=== PATIENT | male | born 1950 | race Caucasian/White ===

== ENCOUNTER 2018-10-10 09:05 | Outpatient (REF) | payer MEDICARE, MEDICAID, SELFPAY ==
[2018-10-10 14:37] LABS: Bilirubin Negative (Negative); Blood Negative (Negative); Clarity Clear; Glucose Negative (Negative); Ketones Negative (Negative); Leukocyte Esterase Negative (Negative); Nitrite Negative (Negative); Urobilinogen 0.2 EU/dL (Up TO 0.2)
== END 2018-10-10 09:25 ==
LOC: NCHCN 09:05
PROVIDERS: PCP Nurse Practitioner Family; Visit Provider Nurse Practitioner Family
DX: R35.0 Frequency of micturition (principal); N52.9 Male erectile dysfunction, unspecified; Z12.5 Encounter for screening for malignant neoplasm of prostate
CPT/HCPCS: 84153; 84403; 81003

== ENCOUNTER 2018-10-11 07:42 | Outpatient (REF) | payer MEDICARE, SELFPAY ==
[2018-10-12 11:14] LABS: PSA, Screening 1.1 ng/ml (0-4.5)
[2018-10-14 11:26] LABS: Testosterone, Free 6.18 ng/dL (3.47-13.0); Testosterone, Total 206 ng/dL (240-950)
== END 2018-10-11 08:02 ==
LOC: NCHCN 07:42
PROVIDERS: PCP Nurse Practitioner Family; Visit Provider Nurse Practitioner Family
DX: N52.9 Male erectile dysfunction, unspecified (principal); Z12.5 Encounter for screening for malignant neoplasm of prostate
CPT/HCPCS: 84153; 84402; 84403

== ENCOUNTER 2019-04-16 08:30 | Outpatient (REF) | payer MEDICARE, SELFPAY ==
[2019-04-16 19:44] LABS: HGB 15.5 g/dL (13.5-17.5); Mean Corp. HGB Concentration 34.4 g/dL (32.0-36.0); Mean Corpuscular Volume 84.3 fL (80-95); Mean Platelet Volume 10.9 fL (8.0-11.0); Platelet Count 216 x1000/uL (130-400); RBC 5.34 m/cumm (4.50-6.00); RBC Distribution Width 12.9 % (11.8-14.1)
[2019-04-16 20:02] LABS: ALT 49 U/L (12-78); AST 21 U/L (15-37); Albumin 3.9 g/dL (3.4-5.0); Alkaline Phosphatase 80 U/L (46-116); Anion Gap 9.7 mmol/L (3-11); BUN 16 mg/dL (7-18); Bilirubin, Total 0.5 mg/dL (0.2-1.0); CO2 27.3 mmol/L (21.0-32.0); CREATININE 0.99 mg/dL (0.70-1.30); Calcium 8.9 mg/dL (8.5-10.1); Chloride 102 mmol/L (98-107); Glucose 126 mg/dL (70-100); Potassium 4.2 mmol/L (3.5-5.1); Sodium 139 mmol/L (136-145); Total Protein 6.8 g/dL (6.4-8.2)
== END 2019-04-16 08:50 ==
LOC: NCHCN 08:30
PROVIDERS: PCP Nurse Practitioner Family; Visit Provider Nurse Practitioner Family
DX: F10.10 Alcohol abuse, uncomplicated (principal); I10 Essential (primary) hypertension; E11.65 Type 2 diabetes mellitus with hyperglycemia
CPT/HCPCS: 80053; 85027

== ENCOUNTER → 2019-07-05 13:13 | Outpatient (BNVA) | payer MEDICARE, SELFPAY | PROVIDERS: PCP Nurse Practitioner Family; Referring Provider Nurse Practitioner Family; Visit Provider Physical Therapy Assistant | DX: Z86.010 Personal history of colon polyps (principal); Z12.11 Encounter for screening for malignant neoplasm of colon; Z80.0 Family history of malignant neoplasm of digestive organs; E11.9 Type 2 diabetes mellitus without complications; Z79.4 Long term (current) use of insulin ==

== ENCOUNTER 2019-07-13 05:54 | Day surgery (SDC) | payer MEDICARE, SELFPAY ==
[2019-07-13 06:06] VITALS: BP 138/72; PULSE 60; RESP 18; TEMP 36.6; O2SAT 95
[2019-07-13] MEDS: Lactated Ringers 1,000 ML 80 ML IV (06:31)
--- NOTE | 2019-07-13 07:12 | W.PM.DSUDISC ---
Discharge Plan Disposition Patient Disposition: HOME Condition: Good Discharge Details Reason For Visit: Colonoscopy Attending Provider: Soraida Posadas Primary Care Provider: Jag Escalante Home Meds and New Rx's Prescriptions: Continued metformin 500 mg tablet 1,000 mg PO BID RF: 0 Basaglar KwikPen U-100 Insulin 100 unit/mL (3 mL) insulin pen 80 unit SC DAILY RF: 0 ammonium lactate 12 % lotion 1 applic TP BID RF: 0 sildenafil [Viagra] 50 mg tablet 50 mg PO DAILY PRNRF: 0 lisinopril 10 MG tablet 10 mg PO DAILY RF: 0 simvastatin 80 MG tablet 40 mg PO DAILY RF: 0 albuterol sulfate [Proventil HFA] 1 PUFF HFA aerosol inhaler 2 puff Inhalation QID PRNRF: 0 aspirin [Aspir-81] 81 MG tablet,delayed release (DR/EC) 81 mg PO DAILY RF: 0 Discharge Instructions Additional Instructions: Findings: One small polyp was removed. My office will contact you with biopsy results. Follow up: Plan for colonoscopy in 5 years Please call if you develop: fevers >101.5 Nausea or Vomiting Abdominal pain that is not transient DAY SURGERY UNIT POST COLONOSCOPY INSTRUCTIONS 1. Because there will be medication in your system for the next 24 hours, you may feel a little sleepy. Your coordination will be affected. Therefore: a. Do not drive or operate dangerous equipment for 24 hours. b. Do not drink alcohol beverages for 24 hours (not even beer). c. Plan to go home and rest for the day. 2. Generally there are no restrictions on your activity after a day or so has gone by, but you may feel a bit fatigued for a few days. 3 After you arrive home you may have a light meal and return to a normal diet as you can tolerate it without feeling sick to your stomach. 4. After surgery, you may feel pain or discomfort. This should be only transient, but if it persists please contact your doctor. 5. If there are any questions regarding the findings of your procedure, please feel free to contact your doctor. 6. If you are unable to contact your doctor with a problem, contact the hospital at [phone]. 7. Continue all your regular medications unless directed otherwise. I understand the above instructions and have no questions. Signature of Patient or Responsible Adult Escort Date/Time Name of Responsible Adult Escort Signature of Nurse Date/Time Activity:: Activity as Tolerated Diet:: As Tolerated Discharge Orders Discharge Orders: Discharge Order (Routine); Ordered 07/13/19 Ordered By: Soraida Posadas DS: Diagnosis Discharge Diagnosis (1) Colon polyp: Status: Acute (2) Hx of colonoscopy:
--- NOTE | 2019-07-13 07:42 | BOWEL_PTH ---
PATIENT: Jhonatan Baldwin LOC: [facility] U#:[id number] AGE/SX: 68/M ROOM: RE07/13/[address]: Soraida Posadas MD : 1950 BED: DIS: 07/13/2019 SPEC #: [id number] RECD: 07/13/19 12:33 STATUS: ANTONELLA REQ #: [id number] JANNA: 07/13/19 07:[address]: Soraida Posadas DEPT: Surgical Specimen RECD BY: Shania Waddell ENTERED: 07/13/19 12:35 SP TYPE: Bowel OTHR DR: Jag Escalante Tissues: 1 - BIOPSY BOWEL Procedures: GROSS AND MICRO LEVEL 4 Comments: [id number]
[2019-07-13 08:28] VITALS: BP 147/79; PULSE 53; RESP 20; TEMP 36.5; O2SAT 96
--- NOTE | 2019-07-13 10:23 | COLE_ITS ---
DATE OF PROCEDURE: July 13, 2019 PREOPERATIVE DIAGNOSIS: History of colon polyps. POSTOPERATIVE DIAGNOSIS: Descending colon polyp. PROCEDURE: Colonoscopy with cold forceps polypectomy. SURGEON: Soraida Posadas M.D. ANESTHESIA: General. INDICATIONS: This is a 68-year-old man whose prior colonoscopy in 2013 showed a tubular adenoma. Th ere is an uncertain family history with his mother possibly having colon cancer. PROCEDURE: He was placed in the left Stacy position. Anesthesia was administered. Digital rectal e xamination revealed no abnormalities. The scope was advanced to the cecum without difficulty. His p rep was excellent. The distal ileum was intubated and appeared normal. The scope was slowly withdra wn with no abnormalities seen within the ascending or transverse colon. In the descending a diminuti ve polyp was removed with a cold forceps and sent to pathology. No other abnormalities were found th roughout the sigmoid region or rectum, including on retroflex view. He tolerated the procedure well and was stable to recovery. He will need a follow-up colonoscopy again in 5 years. cc: Jag Escalante DNP, [employer]
== END 2019-07-13 08:52 | disposition home or self-care (01) ==
PROVIDERS: PCP Nurse Practitioner Family; Visit Provider Surgery
PROC: 0DJD8ZZ Inspection of Lower Intestinal Tract, Via Natural or Artificial Opening Endoscopic (ICD-10-PCS; CPT 45378; principal; 2019-07-13 07:30)
DX: Z12.11 Encounter for screening for malignant neoplasm of colon (principal); D12.4 Benign neoplasm of descending colon; Z86.010 Personal history of colon polyps; E11.9 Type 2 diabetes mellitus without complications; Z79.84 Long term (current) use of oral hypoglycemic drugs; I10 Essential (primary) hypertension; G47.33 Obstructive sleep apnea (adult) (pediatric)
CPT/HCPCS: 45380; 88305

== ENCOUNTER 2019-10-18 12:30 | Outpatient (REF) | payer MEDICARE, SELFPAY ==
[2019-10-18 19:08] LABS: PROTEIN 7.6 mg/dL
[2019-10-18 19:10] LABS: COMMENT (LAB VIEW ONLY) 78.42 mg/dL; Prot/Crea Ur Ratio 0.09
== END 2019-10-18 12:50 ==
LOC: NCHCN 12:30
PROVIDERS: PCP Nurse Practitioner Family; Visit Provider Nurse Practitioner Family
DX: E11.65 Type 2 diabetes mellitus with hyperglycemia (principal); I10 Essential (primary) hypertension
CPT/HCPCS: 82043; 82565; 82570; 84156

== ENCOUNTER 2020-05-16 10:30 | Outpatient (REF) | payer MEDICARE, SELFPAY ==
[2020-05-16 18:10] LABS: HCT 45.1 % (40.0-50.0); HGB 15.2 g/dL (13.5-17.5); Mean Corp. HGB Concentration 33.7 g/dL (32.0-36.0); Mean Corpuscular Hemoglobin 28.4 pg (27.0-33.0); Mean Corpuscular Volume 84.3 fL (80-95); Mean Platelet Volume 10.8 fL (8.0-11.0); Platelet Count 255 x1000/uL (130-400); RBC 5.35 m/cumm (4.50-6.00); RBC Distribution Width 12.6 % (11.8-14.1); White Blood Cell Count 6.54 k/cumm (4.4-10.8)
[2020-05-16 18:31] LABS: ALT 40 U/L (16-63); AST 21 U/L (15-37); Albumin 4.2 g/dL (3.4-5.0); Alkaline Phosphatase 81 U/L (46-116); Anion Gap 10.3 mmol/L (3-11); BUN 18 mg/dL (7-18); Bilirubin, Total 0.5 mg/dL (0.2-1.0); CO2 27.7 mmol/L (21.0-32.0); CREATININE 1.19 mg/dL (0.70-1.30); Calcium 9.9 mg/dL (8.5-10.1); Calculated LDL 87 mg/dL (<100); Chloride 99 mmol/L (98-107); Cholesterol 146 mg/dL (<200); Glucose 244 mg/dL (74-106); HDL Cholesterol 40 mg/dL (40-60); Potassium 4.5 mmol/L (3.5-5.1); Sodium 137 mmol/L (136-145); Total Protein 7.1 g/dL (6.4-8.2); Triglyceride 98 mg/dL (<150)
== END 2020-05-16 10:50 ==
LOC: NCHCN 10:30
PROVIDERS: PCP Nurse Practitioner Family; Visit Provider Nurse Practitioner Family
DX: E11.65 Type 2 diabetes mellitus with hyperglycemia (principal); I10 Essential (primary) hypertension; F10.10 Alcohol abuse, uncomplicated
CPT/HCPCS: 80053; 80061; 85027

== ENCOUNTER 2021-02-13 12:59 | Outpatient (REF) | payer MEDICARE, SELFPAY ==
[2021-02-13 15:25] LABS: Hemoglobin A1C 9.3 % (<5.7)
[2021-02-13 15:34] LABS: ALT 50 U/L (16-63); AST 23 U/L (15-37); Albumin 4.3 g/dL (3.4-5.0); Alkaline Phosphatase 91 U/L (46-116); Anion Gap 9.6 mmol/L (3-11); BUN 15 mg/dL (7-18); Bilirubin, Total 0.6 mg/dL (0.2-1.0); CO2 29.4 mmol/L (21.0-32.0); CREATININE 1.2 mg/dL (0.70-1.30); Calcium 9.7 mg/dL (8.5-10.1); Chloride 101 mmol/L (98-107); Glucose 272 mg/dL (74-106); Potassium 4.5 mmol/L (3.5-5.1); Sodium 140 mmol/L (136-145); Total Protein 7.4 g/dL (6.4-8.2)
[2021-02-13 21:53] LABS: PSA, Screening 1.3 ng/mL (0.0-4.5)
[2021-02-16 09:43] LABS: Hepatitis C Ab w Rflx HCV PCR Negative (Negative)
[2021-02-16 09:53] LABS: HIV-1/2 Ag & Ab Screen Negative (Negative)
== END 2021-02-13 13:00 | disposition home or self-care (01) ==
LOC: NCHCN 12:59
PROVIDERS: PCP Nurse Practitioner Family; Visit Provider Nurse Practitioner Family
DX: F10.10 Alcohol abuse, uncomplicated (principal); E11.65 Type 2 diabetes mellitus with hyperglycemia; I10 Essential (primary) hypertension; R39.15 Urgency of urination; Z12.5 Encounter for screening for malignant neoplasm of prostate; Z11.4 Encounter for screening for human immunodeficiency virus [HIV]; Z11.59 Encounter for screening for other viral diseases
CPT/HCPCS: 80053; 84153; 86803; 87389; 83036

== ENCOUNTER 2021-05-25 18:28 | Outpatient (REF) | payer OTHER, SELFPAY ==
[2021-05-25 20:56] LABS: Hemoglobin A1C 7.4 % (<5.7)
[2021-05-25 21:10] LABS: ALT 42 U/L (16-63); AST 21 U/L (15-37); Albumin 4.3 g/dL (3.4-5.0); Alkaline Phosphatase 60 U/L (46-116); BUN 20 mg/dL (7-18); Bilirubin, Total 0.5 mg/dL (0.2-1.0); CREATININE 0.9 mg/dL (0.70-1.30); Calcium 9.1 mg/dL (8.5-10.1); Calculated LDL 97 mg/dL (<100); Chloride 104 mmol/L (98-107); Cholesterol 156 mg/dL (<200); Glucose 136 mg/dL (74-106); HDL Cholesterol 44 mg/dL (40-60); Potassium 4.7 mmol/L (3.5-5.1); Sodium 139 mmol/L (136-145); Total Protein 7.3 g/dL (6.4-8.2); Triglyceride 78 mg/dL (<150)
== END 2021-05-25 18:29 | disposition home or self-care (01) ==
LOC: NCHCN 18:28
PROVIDERS: PCP Nurse Practitioner Family; Visit Provider Physician Assistant Medical
DX: E11.42 Type 2 diabetes mellitus with diabetic polyneuropathy (principal); E11.65 Type 2 diabetes mellitus with hyperglycemia; I10 Essential (primary) hypertension
CPT/HCPCS: 80053; 80061; 83036

== ENCOUNTER 2022-05-24 08:28 | Outpatient (REF) | payer OTHER, SELFPAY ==
[2022-05-24 16:33] LABS: Hemoglobin A1C 7.5 % (<5.7)
[2022-05-24 16:36] LABS: ALT 35 U/L (16-63); AST 21 U/L (15-37); Albumin 4.2 g/dL (3.4-5.0); Alkaline Phosphatase 60 U/L (46-116); Anion Gap 10.1 mmol/L (3-11); BUN 20 mg/dL (7-18); Bilirubin, Total 0.7 mg/dL (0.2-1.0); CO2 27.9 mmol/L (21.0-32.0); Calcium 9.2 mg/dL (8.5-10.1); Calculated LDL 75 mg/dL (<100); Chloride 100 mmol/L (98-107); Cholesterol 131 mg/dL (<200); Glucose 126 mg/dL (74-106); HDL Cholesterol 45 mg/dL (40-60); Potassium 4.5 mmol/L (3.5-5.1); Sodium 138 mmol/L (136-145); Total Protein 7.2 g/dL (6.4-8.2); Triglyceride 58 mg/dL (<150)
== END 2022-05-24 08:29 | disposition home or self-care (01) ==
LOC: NCHCN 08:28
PROVIDERS: PCP Nurse Practitioner Family; Visit Provider Physician Assistant Medical
DX: E11.65 Type 2 diabetes mellitus with hyperglycemia (principal); I10 Essential (primary) hypertension; E78.5 Hyperlipidemia, unspecified
CPT/HCPCS: 80053; 80061; 83036

== ENCOUNTER → 2022-05-25 00:43 | Outpatient (CLI) | payer OTHER, SELFPAY ==
--- NOTE | 2022-05-25 | DI.RAD_ITS ---
Exam(s) XR KNEE RT 3V AP,LAT,GABBY EXAM: XR KNEE RT 3V AP,LAT,GABBY CLINICAL HISTORY: RT KNEE PAIN, M25.561. TECHNIQUE: 2D digital imaging was performed. COMPARISON: CR LEFT KNEE LIMITED 1 OR 2 VIEWS from 02/17/2015 FINDINGS: 3 views There is moderate narrowing of the medial compartment. No marginal osteophytes. Lateral compartment unremarkable. Patellofemoral exhibits mild degenerative change. IMPRESSION: Moderate degenerative changes in the medial compartment of the right knee. DATA REPOSITORY: RADIATION DOSE DELIVERED:
--- OUTSIDE RECORDS SUMMARY | 2022-05-25 00:49 | XMS_ITS | Encounter Summary ---
:1950 Author Organization [facility] Address [address] [place] [address] Care Team Providers Name Role Phone Denzel Lomas MD Primary Care Provider Encounter Details Date Type Department Care Team Description 02/13/2021 Lab Requisition [facility] Outr Resulting Lab, Pathology & Laboratory Provider [facility] [address] [place] [address] Social History Tobacco Use Types Packs/Day Years Used Date Never Assessed Sex Assigned at Date Recorded Not on file documented as of this encounter Plan of Treatment Not on filedocumented as of this encounter Procedures Procedure Name Priority Date/Time Associated Comments Diagnosis HIV 1/2 ANTIGEN AND Routine 02/13/2021 11:55 Resu lts for this ANTIBODY, 4TH EDT procedure are in GENERATION the results section. documented in this encounter Results HIV 1/2 ANTIGEN AND ANTIBODY, 4TH GENERATION (02/13/2021 11:55 EDT) HIV 1 and 2 Negative Negative [facility] Antibody/p24 Comment: LABORATORY Antigen, 4th If acute HIV-1 infection is suspected in a high risk ??patient, submit plasma specimen for HIV-1 RNA quantitation test. SERV ICES Generation Fourth Generation assay performed on the Siemens Centa ur. Specimen Blood - Venous blood (substance) Performing Organization Address City/State/ZIP Code Phon e Number [facility] [address] [place] [address] SERVICES documented in this encounter Visit Diagnoses Not on filedocumented in this encounter Care Teams Tyre Fitter Relationship Specialty Start Date End Date Denzel Lomas MD PCP - General 01/10/14 [address] [place] [phone] (work) documented as of this encounter
--- OUTSIDE RECORDS SUMMARY | 2022-05-25 00:49 | XMS_ITS | Encounter Summary ---
:[address] [facility] Address [address] [place] [address] Care Team Providers Name Role Phone Unavailable Primary Care Provider Unavailable Encounter Details Date Type Department Care Team Description 10/24/2007 Results Only [facility] - Bebo Fiore MD conversion [address] [facility] [address] [place], [place] [address] [place] [phone] Social History Tobacco Use Types Packs/Day Years Used Date Never Assessed Sex Assigned at Date Recorded Not on file documented as of this encounter Plan of Treatment Not on filedocumented as of this encounter Procedures Procedure Name Priority Date/Time Associated Diagnosis Comme nts SURGICAL PATHOLOGY Routine 10/24/2007 0:00 EST Re sults for this procedure are i n the results section. documented in this encounter Results SURGICAL PATHOLOGY (10/24/2007 0:00 EST) Pathology Report: SURGICAL PATHOLOGY REPORT [facility] Reports generated via electronic interface contain demetrio ginal data; LAB however they are lacking the format of the original re port. Caution should be taken when reading/interpreting unfo rmatted reports. Name: ? CARITO BALDWIN ? Accession #: ? [id number] ? : ? 1950 (Age: 56) ??M ? Collect Date: ? 10/24/2007 ? Location: ? [facility] ? Receive Date: ? 007 ? Provider: BEBO LOMAX MD Copy to: SHAHZAD ONEILL MD ? Final Pathologic Diagnosis: ? Tongue, left, biopsy: - Squamous papilloma (oral wart). ?? Document reviewed and electronically signed by: RAHAT JOHNSON MD Report ??Date: 10/26/2007 17:42 By the signature above, the attending physician certif ies that he/she has personally conducted a gross and/or microscopic examin ation of the described specimens and rendered or confirmed the above diagnosi s. Specimen(s) Received: ? L tongue lesion Clinical History: ? L tongue lesion Gross Description: ? Received in formalin labelled Lacoss and L tongue lesion is a 0.5 x 0.4 x 0.4 cm firm kenny-white piec e of tissue and a 0.3 x 0.2 x 0.1 cm firm white kenny piece of tissue. ??The larger tissue is bisected and the specimen is submitted entirely in one cassette. ??(Bill Lawrence/[facility] End of Report Specimen Performing Organization Address City/State/ZIP Code Phon e Number [facility] [address] [place] [address] SERVICES [facility] [address] [place] [address] documented in this encounter Visit Diagnoses Not on filedocumented in this encounter
--- OUTSIDE RECORDS SUMMARY | 2022-05-25 00:49 | XMS_ITS | Encounter Summary ---
:1950 Author Organization [facility] Address [address] [place] [address] Care Team Providers Name Role Phone Denzel Lomas MD Primary Care Provider Encounter Details Date Type Department Care Team Description 07/13/2019 Results Only [facility] Ling Posadas MD [phone] [facility] [facility] [place] [address] Social History Tobacco Use Types Packs/Day Years Used Date Never Assessed Sex Assigned at Date Recorded Not on file documented as of this encounter Plan of Treatment Not on filedocumented as of this encounter Procedures Procedure Name Priority Date/Time Associated Diagnosis Comme nts SURGICAL PATHOLOGY Routine 07/13/2019 15:58 Resul ts for this EDT procedure are i n the results section. documented in this encounter Results SURGICAL PATHOLOGY (07/13/2019 15:58 EDT) Pathology Report: SURGICAL PATHOLOGY REPORT [facility] Reports generated via electronic interface contain demetrio ginal data; LABORATORY however they are lacking the format of the original re port. SERVICES Caution should be taken when reading/interpreting unfo rmatted reports. Name: ? CARITO BALDWIN ? Accession #: ? [id number] ? : ? 1950 (Age: [age]) ??M ? Collect Date: ? 07/13/2019 ? Location: ? [facility] ? Receive Date: ? 9 ? Provider: LING POSADAS MD Copy to: BRAD RAY DNP ? Final Pathologic Diagnosis: A. COLON, DESCENDING, POLYPS, BIOPSY: - ??Fragments of inflamed tubular adenomas. Document reviewed and electronically signed by: GEORGE SANTACRUZ MD Report ??Date: 07/16/2019 13:53 By the signature above, the attending physician certif ies that he/she has personally conducted a gross and/or microscopic examin ation of the described specimens and rendered or confirmed the above diagnosi s. Specimen(s) Received: Descending colon polyp Clinical History: History of colon polyps Gross Description: ? Received in formalin labelled with proper patient identification (initials L, B) and descending colon polyp are two kenny irregular to nodular tissues, 0.2 x 0.2 x 0.1 cm and 0.3 x 0.2 x 0.2 cm. Entirely submit lucille in 1. LUCIA Perla (ASCP) 07/13/2019 4:37 PM End of Report Specimen Performing Organization Address City/State/ZIP Code Phon e Number [facility] [address] [place] [address] SERVICES documented in this encounter Visit Diagnoses Not on filedocumented in this encounter Care Teams Take Away Attendant Relationship Specialty Start Date End Date Denzel Lomas MD PCP - General 01/10/[address] [place] [phone] documented as of this encounter
--- OUTSIDE RECORDS SUMMARY | 2022-05-25 00:49 | XMS_ITS | Encounter Summary ---
:1950 Author Organization [facility] [place] [address] Care Team Providers Name Role Phone AvaJag Kirstenmalika NAOMIE Primary Care Provider Reason for Visit Reason Comments Skin Check Consultation (Routine) - Specialty Diagnoses / Procedures Referred By Contact Refer red To Contact Dermatology Diagnoses Disorder of the skin and subcutaneous tissue, unspecified Skin Lesions, Multiple Jag Escalante APRN Hammer, Charles J, MD Procedures Consult [address] [place], [place] DERMATOLOGY [id number] [place] [phone] Fax: Referral ID Status Reason Start Date Expiration Date Visits V isits Requested Authorized [id number] Consult, Test 05/02/2019 05/01/2020 6 6 & Treat PCP Updated and/or Approved Encounter Details Date Type Department Care Team Description 11/08/2019 Office Visit [facility]atology at [facility], Verruca vulgaris; Meme GROSS Acrochordon; [address] [facility] Seborrheic keratosis Sadiq [facility] [place], [place] [phone] Social History Tobacco Use Types Packs/Day Years Used Date Never Smoker Smokeless Tobacco: Never Used Sex Assigned at Date Recorded Not on file documented as of this encounter Progress Notes [facility] MD - 11/08/2019 8:30 AM EST Problem: 1. 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 He is referred today by Jag Escalante for his skin checkup. He andhis are concerned about a number of skin lesions. He is not aware of any personal or family history of skin cancer or melanoma. He is always tanned fairly easily would only burn rarely. Physical examination reveals a pleasant 68-year-old gentleman who has brown eyes and type III Knapp pigmentation. He has a verruca vulgaris pedunculated on the right volar forearm. He has numerous tags on the base of his neck in the axillary vaults. He has a number of seborrheic keratoses small perhaps 4-5 light kenny in color a centimeter in diameter present on his back. He has stucco keratoses present on the temples and dorsal hands. Fortunately careful examination of the face the neck the chest the back the hands the arms forearms is benign. There is no evidence of any malignant or premalignant lesions. He does have a a follicular cyst with a dilated infundibular follicular on the mid central back. Assessment plan: Benign skin examination 1. Patient reassured about his benign skin examination 2. Recommended sun avoidance precautions 3. Reassured patient brought his seborrheic keratoses, stucco keratosis, and tags. Acrochordons 1. Discussed optional removal should he become symptomatic. 2. Would recommend a 1/2-hour appointment 3. Patient will consider this option 4. Could consider removal of pedunculated verruca on right volar forearm. Cc: Jag Escalante APRN documented in this encounter Plan of Treatment Not on filedocumented as of this encounter Visit Diagnoses Diagnosis Verruca vulgaris Viral warts, unspecified Acrochordon Unspecified hypertrophic and atrophic co ndition of skin Seborrheic keratosis Other seborrheic keratosis documented in this encounter Care Teams Pot Washer Relationship Specialty Start Date End Date Jag sEcalante APRN PCP - General Family Medicine 11/08/19 [address] [place] [address] documented as of this encounter
--- OUTSIDE RECORDS SUMMARY | 2022-05-25 00:49 | XMS_ITS | Encounter Summary ---
:1950 Author Organization [facility] [place] [address] Care Team Providers Name Role Phone Ava Jag Tracy APRN Primary Care Provider Encounter Details Date Type Department Care Team Description 12/08/2021 Office Visit Dermatology at [facility] Acrocho rdon; Meme GROSS Inflamed acrochordon [address] [facility] Sadiq B D[facility]MAT[facility]Y [place], [place] [phone] Social History Tobacco Use Types Packs/Day Years Used Date Never Smoker Smokeless Tobacco: Never Used Sex Assigned at Date Recorded Not on file documented as of this encounter Progress Notes [facility] MD - 12/08/2021 8:15 AM EST Problem: Follow up for treatment of acrochordons Jhonatan follows up today for treatment of his acrochordons Physical examination reveals 25 acrochordons present today. These were present in the left and rightbase of his neck laterally, and also in both axillary vaults. Assessment plan: Acrochordons, inflamed 1. Today the sites were anesthetized and then removed electrodesiccation 2. Wound care instructions and supplies given. Return to clinic as needed. 3. Indication for removal at these are often rubbed and irritated and painful. CC: Jag Escalante APRN documented in this encounter Plan of Treatment Not on filedocumented as of this encounter Visit Diagnoses Diagnosis Acrochordon Unspecified hypertrophic and atrophic co ndition of skin Inflamed acrochordon Unspecified hypertrophic and atrophic co ndition of skin documented in this encounter Care Teams Wellness Program Coordinator Relationship Specialty Start Date End Date Jag Escalante APRN PCP - General Family Medicine 11/08/19 [address] [place] [address] documented as of this encounter
--- OUTSIDE RECORDS SUMMARY | 2022-05-25 00:49 | XMS_ITS | Encounter Summary ---
:1950 Author Organization [facility] Address [address] [place] [address] Care Team Providers Name Role Phone Unavailable Primary Care Provider Unavailable Encounter Details Date Type Department Care Team Description 01/08/2014 Hospital Encounter [facility] - S Unknown, Pro Kaycee castillo MD [address] [facility] [phone] [place] [address] (Work) [phone] Social History Tobacco Use Types Packs/Day Years Used Date Never Assessed Sex Assigned at Date Recorded Not on file documented as of this encounter Discharge Disposition Disposition Code Departure Means Destination Home or Self Detention documented in this encounter Plan of Treatment Not on filedocumented as of this encounter Visit Diagnoses Not on filedocumented in this encounter
--- OUTSIDE RECORDS SUMMARY | 2022-05-25 00:49 | XMS_ITS | Clinical Summary ---
:1950 Author Organization [facility] [place] [address] Care Team Providers Name Role Phone Jag Escalante NAOMIE Primary Care Provider Allergies No known active allergies Medications Medication Sig Dispensed Refills Start Date End Date Status simvastatin (ZOCOR) TAKE 1 TABLET BY 0 10/05/2019 Active 40 mg Tablet MOUTH AT BEDTIME albuterol 90 INHALE 2 PUFFS BY 0 10/19/2019 Active mcg/actuation HFA MOUTH EVERY 4 TO 6 Aerosol Inhaler HOURS NEEDED FREESTYLE LITE TEST TWO TIMES A DAY 0 07/25/2019 Active STRIPS BASAGLAR KWIKPEN INJECT 80 UNITS 0 09/10/2019 Active U-100 INSULIN 100 SUBCUTANEOUSLY AT unit/mL (3 mL) pen BEDTIME ketoconazole APPLY TO AFFECTED 0 10/09/2019 Active (NIZORAL) 2 % Cream AREA S DAILY FOR 4 WEEKS THEN EVERY OTHER DAY lisinopril TAKE ONE TABLET BY 0 09/19/2019 Active (PRINIVIL;ZESTRIL) MOUTH EVERY DAY 10 mg Tablet Active Problems No known active problems Social History Tobacco Use Types Packs/Day Years Used Date Never Smoker Smokeless Tobacco: Never Used Sex Assigned at Date Recorded Not on file Plan of Treatment Health Maintenance Due Date Last Done Comments Covid-19 Vaccine (#1) 1956 Hepatitis C Screening 1969 Tdap adult 1970 Tetanus vaccine 1970 Colonoscopy 1996 Zoster vaccine (1 of 2) 2001 Advance Directive 2006 Pneumoccocal Vaccine: 65+ (1 - PCV) 2016 Influenza (Flu) vaccine (1 of 1 - Influenza standard 07/08/2022 series) Insurance Payer Benefit Plan / Subscriber ID Effective Dates Phone Addre ss Type Group [facility] [id number] 2021-Elsy [phone] [address] [place], [place] MEDICARE MEDICARE PPO [id number] Care Teams Education Faculty Member Relationship Specialty Start Date End Date Jag Escalante, NAOMIE PCP - General Family Medicine 11/08/19 [address] [place], [place] [phone]
--- OUTSIDE RECORDS SUMMARY | 2022-05-25 00:49 | XMS_ITS | Encounter Summary ---
:1950 Author Organization [facility] Address [address] [place] [address] Care Team Providers Name Role Phone Denzel Lomas MD Primary Care Provider Encounter Details Date Type Department Care Team Description 02/13/2021 Lab Requisition [place] Outr Resulting Lab, Pathology & Laboratory Provider [facility] [address] [place] [address] Social History Tobacco Use Types Packs/Day Years Used Date Never Assessed Sex Assigned at Date Recorded Not on file documented as of this encounter Plan of Treatment Not on filedocumented as of this encounter Procedures Procedure Name Priority Date/Time Associated Comments Diagnosis HEPATITIS C AB W Routine 02/13/2021 11:55 Results for this REFLEX TO HCV RNA BY EDT procedu re are in PCR the results section. PSA TOTAL, Routine 02/13/2021 11:55 Results for this DIAGNOSTIC EDT procedure are i n the results section. documented in this encounter Results PSA TOTAL, DIAGNOSTIC (02/13/2021 11:55 EDT) Pathologist Sig nature PSA 1.3 0.0 - 4.5 ng/mL [facility] Specimen Blood - Venous blood (substance) Narrative [facility] - 02/13/2021 21:49 EDT NOTE: Serum PSA concentration should not be in terpreted as absolute evidence for the presence or absence of malignant disease. Assayed on Siemens ADVIA Centaur XPT usi ng chemiluminescent technology.??Values obtained by using different assay methods cannot be used interchangeably. Performing Organization Address City/State/ZIP Code Phon e Number [facility] [address] [place] [address] SERVICES HEPATITIS C AB W REFLEX TO HCV RNA BY PCR (02/13/2021 11:55 EDT) Pathologist Sig nature Hep C Antibody Negative Negative [facility] Specimen Blood - Venous blood (substance) Performing Organization Address City/State/ZIP Code Phon e Number [facility] [address] [place] [address] SERVICES documented in this encounter Visit Diagnoses Not on filedocumented in this encounter Care Teams Nurses Medical Assistants Phlebotomists Relationship Specialty Start Date End Date Denzel Lomas MD PCP - General 01/10/[address] [place] [phone] documented as of this encounter
== END ==
PROVIDERS: PCP Nurse Practitioner Family; Visit Provider Physician Assistant Medical
DX: M17.11 Unilateral primary osteoarthritis, right knee (principal)
CPT/HCPCS: 73562

== ENCOUNTER 2022-07-13 17:18 | Outpatient (REF) | payer OTHER, SELFPAY ==
[2022-07-13 15:29] LABS: HCT 48.6 % (40.0-50.0); HGB 16.4 g/dL (13.5-17.5); MCH 28.9 pg (27.0-33.0); MCHC 33.7 % (32.0-36.0); MCV 86 fL (80-95); MPV 10.5 fL (8.0-11.0); Platelet Count 238 10^3/uL (130-400); RBC 5.68 10^6/uL (4.36-5.78); RDW 12.3 % (11.8-14.1); RDW-SD 38.5 fL; WBC 5.13 10^3/uL (4.4-10.8)
== END 2022-07-13 17:19 | disposition home or self-care (01) ==
LOC: NCHCN 17:18
PROVIDERS: PCP Nurse Practitioner Family; Visit Provider Physician Assistant Medical
DX: R35.0 Frequency of micturition (principal); R39.15 Urgency of urination; Z12.5 Encounter for screening for malignant neoplasm of prostate
CPT/HCPCS: 84153; 85027

== ENCOUNTER 2022-07-19 17:47 | Outpatient (REF) | payer OTHER, SELFPAY ==
[2022-07-19 22:35] LABS: PSA, Screening 1.6 ng/mL (<=6.5)
== END 2022-07-19 17:48 | disposition home or self-care (01) ==
LOC: NCHCN 17:47
PROVIDERS: Visit Provider Physician Assistant Medical
DX: R39.15 Urgency of urination (principal); Z12.5 Encounter for screening for malignant neoplasm of prostate
CPT/HCPCS: 84153

== ENCOUNTER 2022-07-29 09:14 | Outpatient (CLI) | payer OTHER, SELFPAY ==
--- NOTE | 2022-07-29 08:15 | DI.RAD_ITS ---
Exam(s) XR SHOULDER RT COMPLETE 2+V EXAM: XR SHOULDER RT COMPLETE 2+V CLINICAL HISTORY: injury. TECHNIQUE: 2D digital imaging was performed. Two views. COMPARISON: No exams were available for comparison FINDINGS: BONES: No acute fracture is present. No bony destructive lesion is seen. There is spurring at the acromion and greater tuberosity. JOINTS: No dislocation present. Minimal spurring at the glenoid. Glenohumeral joint space is well m aintained. Mild spurring AC joint. SOFT TISSUE: Normal. IMPRESSION: Degenerative changes. DATA REPOSITORY: RADIATION DOSE DELIVERED:
== END 2022-07-29 09:15 | disposition home or self-care (01) ==
LOC: DIORS 09:14
PROVIDERS: PCP Physician Assistant Medical; Referring Provider Physician Assistant Medical; Visit Provider Physician Assistant Surgical
DX: G89.11 Acute pain due to trauma (principal); M75.81 Other shoulder lesions, right shoulder; W01.10XA Fall on same level from slipping, tripping and stumbling with subsequent striking against unspecified object, initial encounter
CPT/HCPCS: 20610; 99203; 73030; J1040

== ENCOUNTER 2023-05-11 08:56 | Outpatient (REF) | payer OTHER, SELFPAY ==
[2023-05-11 15:48] LABS: Hemoglobin A1C 8.6 % (<5.7)
[2023-05-11 16:18] LABS: ALT 48 U/L (16-63); AST 26 U/L (15-37); Albumin 4.1 g/dL (3.4-5.0); Alkaline Phosphatase 63 U/L (46-116); Anion Gap 9.3 mmol/L (3-11); BUN 15 mg/dL (7-18); Bilirubin, Total 0.7 mg/dL (0.2-1.0); CO2 27.7 mmol/L (21.0-32.0); Calcium 9.3 mg/dL (8.5-10.1); Calculated LDL 100 mg/dL (<100); Chloride 103 mmol/L (98-107); Cholesterol 163 mg/dL (<200); Estimated GFR 80.47 (mL/min/1.73m2); Glucose 145 mg/dL (74-106); HDL Cholesterol 50 mg/dL (40-60); Potassium 4.5 mmol/L (3.5-5.1); Sodium 140 mmol/L (136-145); Total Protein 7.2 g/dL (6.4-8.2); Triglyceride 68 mg/dL (<150)
[2023-05-12 20:14] LABS: PSA, Screening 1.1 ng/mL (<=6.5)
== END 2023-05-11 08:57 | disposition home or self-care (01) ==
LOC: NCHCN 08:56
PROVIDERS: PCP Physician Assistant Medical; Visit Provider Physician Assistant Medical
DX: E11.65 Type 2 diabetes mellitus with hyperglycemia (principal); E78.5 Hyperlipidemia, unspecified; R39.15 Urgency of urination; Z12.5 Encounter for screening for malignant neoplasm of prostate
CPT/HCPCS: 80053; 80061; 84153; 83036

== ENCOUNTER → 2023-07-07 08:45 | Outpatient (BNVA) | payer OTHER, SELFPAY | PROVIDERS: PCP Physician Assistant Medical; Referring Provider Physician Assistant Medical; Visit Provider Student in an Organized Health Care Education/Training Program | DX: M17.11 Unilateral primary osteoarthritis, right knee (principal) | CPT/HCPCS: 20610; J1040 ==

== ENCOUNTER 2023-08-16 15:23 | Outpatient (REF) | payer OTHER, SELFPAY ==
[2023-08-16 16:42] LABS: COMMENT (LAB VIEW ONLY) 90.32 mg/dL; PROTEIN 8.3 mg/dL; Prot/Crea Ur Ratio 0.09
== END 2023-08-16 15:24 | disposition home or self-care (01) ==
LOC: NCHCN 15:23
PROVIDERS: PCP Physician Assistant Medical; Visit Provider Physician Assistant Medical
DX: E11.65 Type 2 diabetes mellitus with hyperglycemia (principal)
CPT/HCPCS: 82565; 84156

== ENCOUNTER → 2023-10-24 11:06 | Outpatient (BNVA) | payer OTHER, SELFPAY | PROVIDERS: PCP Physician Assistant Medical; Referring Provider Podiatrist; Visit Provider Physical Therapy Assistant | DX: I73.9 Peripheral vascular disease, unspecified (principal); E11.51 Type 2 diabetes mellitus with diabetic peripheral angiopathy without gangrene | CPT/HCPCS: 93922 ==

== ENCOUNTER → 2023-12-05 07:55 | Outpatient (BNVA) | payer OTHER, SELFPAY | PROVIDERS: PCP Physician Assistant Medical; Referring Provider Physician Assistant Medical; Visit Provider Podiatrist | DX: E11.51 Type 2 diabetes mellitus with diabetic peripheral angiopathy without gangrene; B35.1 Tinea unguium; L60.3 Nail dystrophy | CPT/HCPCS: 11721 ==

== ENCOUNTER → 2023-12-05 13:46 | Outpatient (BNVA) | payer OTHER, SELFPAY | PROVIDERS: PCP Physician Assistant Medical; Referring Provider Physician Assistant Medical; Visit Provider Student in an Organized Health Care Education/Training Program | DX: M17.11 Unilateral primary osteoarthritis, right knee (principal) | CPT/HCPCS: 20610; J1040 ==

== ENCOUNTER 2024-02-03 10:25 | Outpatient (CLI) | payer OTHER, SELFPAY ==
[2024-02-03 09:05] LABS: Hemoglobin A1C 6.7 % (<5.7)
== END 2024-02-03 10:26 | disposition home or self-care (01) ==
LOC: LBO 13:46
PROVIDERS: PCP Physician Assistant Medical; Visit Provider Student in an Organized Health Care Education/Training Program
DX: E11.51 Type 2 diabetes mellitus with diabetic peripheral angiopathy without gangrene (principal); Z01.818 Encounter for other preprocedural examination
CPT/HCPCS: 36415; 83036

== ENCOUNTER 2024-03-16 01:44 | Outpatient (CLI) | payer OTHER, SELFPAY ==
[2024-03-16 10:08] LABS: HCT 49.1 % (40.0-50.0); HGB 16.5 g/dL (13.5-17.5); MCH 28.7 pg (27.0-33.0); MCHC 33.6 % (32.0-36.0); MCV 86 fL (80-95); MPV 10.1 fL (8.0-11.0); Platelet Count 231 10^3/uL (130-400); RBC 5.74 10^6/uL (4.36-5.78); RDW 12.5 % (11.8-14.1); RDW-SD 38.5 fL; WBC 7.71 10^3/uL (4.4-10.8)
[2024-03-16 10:20] LABS: Anion Gap 13.1 mmol/L (3-11); BUN 20 mg/dL (7-18); CO2 25.9 mmol/L (21.0-32.0); CREATININE 1.2 mg/dL (0.70-1.30); Calcium 9.9 mg/dL (8.5-10.1); Chloride 100 mmol/L (98-107); Estimated GFR 64.25 (mL/min/1.73m2); Glucose 157 mg/dL (74-106); Potassium 4.3 mmol/L (3.5-5.1); Sodium 139 mmol/L (136-145)
== END 2024-03-16 01:45 | disposition home or self-care (01) ==
LOC: LBO 01:44
PROVIDERS: PCP Physician Assistant Medical; Visit Provider Student in an Organized Health Care Education/Training Program
DX: M17.11 Unilateral primary osteoarthritis, right knee (principal); Z01.812 Encounter for preprocedural laboratory examination; E11.51 Type 2 diabetes mellitus with diabetic peripheral angiopathy without gangrene
CPT/HCPCS: 36415; 80048; 85027

== ENCOUNTER 2024-03-16 10:24 | Outpatient (CLI) | payer OTHER, SELFPAY ==
--- NOTE | 2024-03-16 09:00 | DI.RAD_ITS ---
Exam(s) XR STANDING ALIGNMENT EXAM: XR STANDING ALIGNMENT CLINICAL HISTORY: TKR Planning. TECHNIQUE: 2D digital imaging was performed. Standing AP views were performed from the pelvis throu gh the ankles. COMPARISON: CR LEFT KNEE LIMITED 1 OR 2 VIEWS from 02/17/2015 CR XR KNEE RT 3V AP,LAT,GABBY from 05/25/2022 FINDINGS: BONES: No acute fracture is present. No bony destructive lesion is seen. Leg length discrepancy: No significant leg length discrepancy at the level of the femoral heads. JOINTS: Knees: Moderate to severe narrowing of the medial femoral tibial joint of the right knee wi th varus angulation. There is lucency at the medial aspect of the tibial component of the plaque pro sthesis which could indicate loosening. Left knee prosthesis. The ankle joints are unremarkable. The hip joints show bilateral acetabular spurring.. SOFT TISSUE: Normal. IMPRESSION: Advanced degenerative changes the medial femoral tibial compartment of the right knee. Lucency at t he medial tibial plateau, beneath the tibial component of the prosthesis could indicate loosening.. No significant leg length discrepancy. DATA REPOSITORY: RADIATION DOSE DELIVERED:
== END 2024-03-16 10:25 | disposition home or self-care (01) ==
LOC: DIORS 10:25
PROVIDERS: PCP Physician Assistant Medical; Referring Provider Physician Assistant Medical; Visit Provider Physician Assistant
DX: M17.11 Unilateral primary osteoarthritis, right knee (principal); Z01.818 Encounter for other preprocedural examination
CPT/HCPCS: 77073

== ENCOUNTER → 2024-03-26 07:51 | Outpatient (BNVA) | payer OTHER, SELFPAY | PROVIDERS: PCP Physician Assistant Medical; Referring Provider Physician Assistant Medical; Visit Provider Podiatrist | DX: E11.51 Type 2 diabetes mellitus with diabetic peripheral angiopathy without gangrene (principal); L60.3 Nail dystrophy; B35.1 Tinea unguium; B35.3 Tinea pedis | CPT/HCPCS: 11721 ==

== ENCOUNTER 2024-03-28 07:09 | Day surgery (SDC) | payer OTHER, SELFPAY ==
[2024-03-28] VITALS (10 sets, daily range): BP systolic 147–170; BP diastolic 66–89; PULSE 64–82; RESP 15–19; TEMP 36.2–36.6; O2SAT 95–97; BMI 39.2
--- NOTE | 2024-03-28 07:18 | W.PM.DSUDISC ---
Date of service: 03/28/24 Time of Service: 07:18 Discharge Plan Disposition Patient Disposition: Home Condition: Good Discharge Details Reason For Visit: R TKR Attending Provider: Chinmay Munoz Primary Care Provider: Tomeka Nielson Home Meds and New Rx's Prescriptions: New celecoxib 200 mg capsule 200 mg PO BID Qty: 60 0RF aspirin 81 mg tablet,delayed release (DR/EC) 81 mg PO BID Qty: 60 0RF acetaminophen 500 mg tablet 1,000 mg PO TID Qty: 90 3RF hydromorphone 2 mg tablet 1 - 2 mg PO Q4H PRN (Reason: pain) Qty: 20 0RF dexamethasone 4 mg tablet 4 mg PO DAILY Qty: 2 0RF gabapentin 300 mg capsule 300 mg PO QHS Qty: 14 0RF pantoprazole 40 mg tablet,delayed release (DR/EC) 40 mg PO DAILY Qty: 30 0RF Continued dapagliflozin propanediol [Farxiga] 5 mg tablet 5 mg PO DAILY metformin 500 mg tablet 1,000 mg PO BID ammonium lactate 12 % lotion 1 applic TP BID sildenafil [Viagra] 50 mg tablet 50 mg PO DAILY PRN insulin glargine [Basaglar KwikPen U-100 Insulin] 100 unit/mL (3 mL) insulin pen 60 unit SC DAILY ketoconazole 2 % cream 1 applic topical DAILY 90 Days Qty: 60 3RF Ozempic 1 mg/dose (4 mg/3 mL) pen injector 1 mg subcut QWEEK lisinopril 10 MG tablet 10 mg PO DAILY simvastatin 80 MG tablet 40 mg PO DAILY albuterol sulfate [Proventil HFA] 1 PUFF HFA aerosol inhaler 2 puff Inhalation QID PRN Patient Comments: 11/12/15 Pt states not used a month ago. PG Discontinued celecoxib [Celebrex] 200 mg capsule 200 mg PO BID Qty: 60 0RF Rx Instructions: take 1 tablet by mouth twice daily aspirin [Aspir-81] 81 MG tablet,delayed release (DR/EC) 81 mg PO DAILY Discharge Instructions Additional Instructions: Total Knee Discharge Instructions Activity: The most important activity is to walk and to work on gentle motion (both flexion and extension). You should try to take short walks a few times a day. It is important that when resting you work on keeping the knee straight. Avoid putting a pillow behind the knee as this will encourage flexion. Work on range of motion exercises as provided by Physical Therapy. - Start outpatient physical therapy within 2 weeks. - You should wear the PARK hose on both legs for 2 weeks. You may remove these at night. You may also use any compression sock in place of the PARK hose. - Utilize [employer] to review exercises, see videos on exercises and obtain basic information pertaining to your surgery and your recovery. Dressing: Remove the Alistair wrap by 2 days after your surgery and put on the PARK stocking given to you from the hospital. Keep the surgical dressing (underneath the ALISTAIR wrap) in place for at least one week. After the first week it may be removed and replaced with light gauze and tape or nothing. The wound and dressing may get wet after 3 days but avoid soaking the dressing or otherwise it will need to be changed. Many people prefer covering the dressing with cling wrap (saran wrap) to minimize it from getting soaked. If it gets wet, just pat dry. If it starts to peel off then it will need to be changed. Medications: - You should take Tylenol and anti-inflammatory Celebrex as your primary pain control medications. If the Celebrex is too expensive or not covered, please call the office for another alternative (Advil/Ibuprofen or Naproxen/Aleve) - You have been prescribed a stronger pain medication hydromorphone for breakthrough pain, take as needed as prescribed. - You have also been prescribed a stomach acid reduction agent Pantoprozole to help reduce stomach acid and reflux. - You have been prescribed Gabapentin to take at night for restlessness and nerve pain. - You will be taking Aspirin 81mg twice a day for DVT prevention unless instructed otherwise. - You have also been prescribed Decadron to take to control post-operative nausea and pain. You will start this tomorrow. - If you have constipation you should take Colace or Miralax (both [id number]-tay-[id number]). It takes most people 3-4 days to have a bowel movement. Follow-up: 2 weeks If you have any acute concerns or questions, please do not hesitate to contact the office at [phone]. You may contact Dr. Munoz with any questions after hours through the hospital at [phone] or on his cell phone at [phone]. Referrals: Chinmay Munoz MD [ [facility] STAFF PHYSICIAN] - Equipment/Supplies: Walker Activity:: Activity as Tolerated Shower/Bathe:: 72 hours Diet:: As Tolerated Discharge Orders Discharge Orders: Discharge Order (Routine); Ordered 03/28/24 Ordered By: Silver Dudley DS: Diagnosis Discharge Diagnosis (1) Primary osteoarthritis of right knee: Status: Acute
[2024-03-28] MEDS: Gabapentin 300 MG CAP PO (07:51)
[2024-03-28] MEDS: Acetaminophen 500 MG TAB 1000 MG PO (07:51)
[2024-03-28] MEDS: Celecoxib 200 MG CAP 400 MG PO (07:52)
[2024-03-28] MEDS: Lactated Ringers 1,000 ML 80 ML IV (08:09)
--- NOTE | 2024-03-28 08:31 | ANES.PREOP_ITS ---
General Info Date of Service Date Performed: 03/28/24 Height: 5 ft 8 in Weight: 117.2 kg Body Mass Index (BMI): 39.2 Surgical Procedure: Operation Date: 03/28/24 09:55 Proposed Procedure Side Surgeon p Knee Total Arthroplasty, Cementless CR Right Chinmay Munoz MD Meds Allergies and Home Medications Allergies Allergy/AdvReac Type Severity Reaction Status Date / Time oxycodone AdvReac Severe Nausea Verified 03/28/24 07:28 Home Medication Medication Instructions Recorded albuterol sulfate 90 mcg/actuation 2 puff inhalation QID PRN 09/24/13 aerosol inhaler (Proventil HFA) simvastatin 80 mg tablet 40 mg PO DAILY 09/24/13 lisinopril 10 mg tablet 10 mg PO DAILY 01/28/15 ammonium lactate 12 % lotion 1 applic topical BID 05/08/19 metformin 500 mg tablet 1,000 mg PO BID 05/08/19 sildenafil 50 mg tablet (Viagra) 50 mg PO DAILY PRN 05/08/19 ketoconazole 2 % topical cream 1 applic topical DAILY 3 months 08/22/23 #60 grams dapagliflozin propanediol 5 mg 5 mg PO DAILY 12/05/23 tablet (Farxiga) insulin glargine 100 unit/mL (3 60 unit subcut DAILY 12/05/23 mL) subcutaneous pen (Basaglar KwikPen U-100 Insulin) semaglutide 1 mg/dose (4 mg/3 mL) 1 mg subcut QWEEK 03/16/24 subcutaneous pen injector (Ozempic) acetaminophen 500 mg tablet 1,000 mg (2 x 500 mg) PO TID #90 03/28/24 tabs aspirin 81 mg tablet,delayed 81 mg PO BID #60 tabs 03/28/24 release celecoxib 200 mg capsule 200 mg PO BID #60 caps 03/28/24 dexamethasone 4 mg tablet 4 mg PO DAILY #2 tabs 03/28/24 gabapentin 300 mg capsule 300 mg PO QHS #14 caps 03/28/24 hydromorphone 2 mg tablet 1 - 2 mg (0.5 - 1 x 2 mg) PO Q4H 03/28/24 PRN pain #20 tabs pantoprazole 40 mg tablet,delayed 40 mg PO DAILY #30 tabs 03/28/24 release Current Visit Medications: Current Medications Generic Name Dose Route Start Last Admin Trade Name Freq PRN Reason Stop Dose Admin Acetaminophen 1,000 mg 03/28/24 06:00 03/28/24 07:51 Acetaminophen 500 Mg Tab PO 03/28/24 23:59 1,000 mg PREOP DIANELYS Administration Acetaminophen 1,000 mg 03/28/24 07:15 Acetaminophen 500 Mg Tab PO 04/27/24 07:14 TID PRN PRN Analgesia Celecoxib 400 mg 03/28/24 06:00 03/28/24 07:52 Celecoxib 200 Mg Cap PO 03/28/24 23:59 400 mg PREOP DIANELYS Administration Docusate Sodium 100 mg 03/28/24 07:15 Docusate Sodium 100 Mg Cap PO 04/27/24 07:14 BID PRN PRN Constipation Gabapentin 300 mg 03/28/24 06:00 03/28/24 07:51 Gabapentin 300 Mg Cap PO 03/28/24 23:59 300 mg PREOP DIANELYS Administration Hydromorphone HCl 0 mg 03/28/24 07:15 Hydromorphone 2 Mg Tab PO 04/27/24 07:14 Q3H PRN PRN Pain Ringer's Solution 1,000 mls @ 80 mls/hr 03/28/24 06:00 03/28/24 08:09 IV 03/28/24 23:59 80 mls/hr INFUSION DIANELYS Administration Cefazolin Sodium 3,000 mg/ 100 mls @ 200 mls/hr 03/28/24 06:00 Sodium Chloride IVPB 03/28/24 23:59 PREOP DIANELYS Tranexamic Acid/Sodium Chloride 1,000 mg in 100 mls @ 600 mls/hr 03/28/24 06:00 IVPB 03/28/24 23:59 PREOP DIANELYS IV Miscellaneous Supplies 1 each 03/28/24 06:00 Iv Access IV 03/28/24 23:59 DIRECTED DIANELYS Ondansetron HCl 4 mg 03/28/24 07:15 Ondansetron 4 Mg/2 Ml Vial IVP 04/27/24 07:14 Q6H PRN PRN Nausea Polyethylene Glycol 17 gm 03/28/24 07:15 Polyethylene Glycol 3350 17 Gm Packet PO 04/27/24 07:14 BID PRN PRN Constipation Sodium Chloride 0 ml 03/28/24 06:00 Normal Saline Flush 10 Ml Syr IV 03/28/24 23:59 PRN PRN Sodium Chloride 0 ml 03/28/24 06:00 Normal Saline 10 Ml Vial IJ 03/28/24 23:59 DIRECTED PRN Sterile Water 0 ml 03/28/24 06:00 Water,Injection,Sterile 10 Ml Vial IJ 03/28/24 23:59 DIRECTED PRN PFSH Active Problems Active Problems: Problem Status Onset Code Tinea pedis B35.3 Diabetes mellitus with peripheral angiopathy E11.51 Primary osteoarthritis of right knee M17.11 Nail dystrophy L60.3 Right rotator cuff tendonitis M75.81 Seborrheic keratosis 07/14/16 L82.1 Sebaceous cyst 07/14/16 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, soft tissue, 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 states he wakes up hard Surgical History Surgical History Hx of colonoscopy 07/13/19 History of carpal tunnel release of both wrists H/O arthroscopic knee surgery H/O arthroscopic knee surgery Right knee History of appendectomy Arthroplasty of knee (10/01/13) LEFT History of knee replacement procedure of left knee H/O surgical procedure a. right knee arthroscopy 09/2011 b. left knee arthroscopy 02/2013 - patellofemoral arthritis and DJD of medial femoral condyle and complex tear of his medial meniscus Tobacco Smoking/Tobacco Use Status: Never Alcohol Alcohol Intake: current Alcohol intake frequency: 0-2 drinks per day Alcohol type: hard liquor Substance Use Substance use: Never Substance use type: does not use Vital Signs and Lab Results Vital Signs Most Recent Vital Signs in EMR: Most Recent Vital Signs Temp Pulse Resp BP Pulse Ox 36.4 C L 71 18 147/72 H 97 03/28/24 07:31 03/28/24 07:31 03/28/24 07:31 03/28/24 07:31 03/28/24 07:31 Lab Results Blood Type / Crossmatch: No Data to Display Complete Blood Count: 2 White Blood Count 7.71 10^3/uL (4.4-10.8) 03/16/24 09:45 Red Blood Count 5.74 10^6/uL (4.36-5.78) 03/16/24 09:45 Hemoglobin 16.5 g/dL (13.5-17.5) 03/16/24 09:45 Hematocrit 49.1 % (40.0-50.0) 03/16/24 09:45 Platelet Count 231 10^3/uL (130-400) 03/16/24 09:45 Complete Metabolic Panel: Sodium 139 mmol/L (136-145) 03/16/24 09:45 Potassium 4.3 mmol/L (3.5-5.1) 03/16/24 09:45 Chloride 100 mmol/L (98-107) 03/16/24 09:45 Carbon Dioxide 25.9 mmol/L (21.0-32.0) 03/16/24 09:45 BUN 20 mg/dL (7-18) H 03/16/24 09:45 Creatinine 1.2 mg/dL (0.70-1.30) 03/16/24 09:45 Est GFR (CKD-EPI 2020) 64.25 (mL/min/1.73m2) 03/16/24 09:45 Calcium 9.9 mg/dL (8.5-10.1) 03/16/24 09:45 Glucose 157 mg/dL (74-106) H 03/16/24 09:45 Liver Function Panel: No Data to Display Coagulation Panel: No Data to Display Cardiac Panel: No Data to Display Arterial Blood Gas: No Data to Display Venous Blood Gas: No Data to Display Pancreas Panel: No Data to Display Thyroid Panel: No Data to Display Infectious Disease: No Data to Display Blood Cultures: No Data to Display Toxicology Panel: No Data to Display Anesthesia Assessment and Plan Anesthesia History Personal History: No History of Anesthesia Complications Family History: No Family History of Anesthesia Complications Exercise Tolerance Exercise Tolerance: Metabolic Equivalents>4 Cardiac & Pulmonary Exam Cardiac Exam: Normal S1/S2 Heart Sounds Pulmonary Exam: Clear Bilateral Breath Sounds Implantable Cardiac Device Does patient have a Pacemaker or an ICD?: No Airway Exam Known Difficult Airway: No Mallampati Class: 2 Mouth Opening: Normal (> 3cm) Thyromental Distance: Greater than 3 cm Neck Range of Motion: Full ROM Neck Circumference: Thick Teeth Condition: Normal Dentition ASA Classification ASA Score: ASA 3 Emergency Case?: No NPO Status NPO Status: NPO Clears >2 hours, Solids >8 hours Anesthesia Plan Resuscitation Status: Full Code Anesthesia Technique: Spinal Anesthesia Airway Planned: Natural Airway Pain Management: Surgeon and patient request nerve block Monitors Used: Standard Monitors
[2024-03-28] MEDS: ceFAZolin 3,000 MG in Normal Saline 100 ML 200 MG IVPB (10:24)
[2024-03-28] MEDS: TRANEXAMIC ACID/SOD. CHL. 1,000 MG/100 ML BAG 600 MG IVPB (10:35)
--- NOTE | 2024-03-28 11:00 | W.ANESNERVE ---
Nerve Block Single Injection Procedure Date and Time Date Performed: 03/28/24 Procedure Start: 10:02 Location Where Procedure Performed Procedure Location: Day Surgery Unit Reason Performed: Postoperative Analgesia Requesting Provider: Chinmay Munoz Timeout Performed Timeout Performed: Yes Monitoring Used ECG, Blood Pressure, SpO2 and See EMR for corresponding vital signs Sterility Sterility: Hand Hygiene, Surgical Cap, Surgical Mask, Sterile Gloves and Chlorhexidine Sedation Given During Procedure Sedation Given (Indicate Dose Given): No Sedation given Patient Mental Status Patient Mental Status: Awake Nerve Block 1st Nerve Block: Laterality: Right Block Type: Adductor Canal Ultrasound Image Saved?: Yes Needle / Catheter Used: 100mm SonoPlex II Local Anesthetic Bolus (Indicate Dose Given): Lidocaine used for local infiltration of skin, Injected in 3-5ml increments after negative blood aspiration and Bupivacaine 0.25% Dose:: 15mL Additives (Indicate Dose Given): None Ultrasound: Sterile probe cover and gel used Nerve Stimulator: Supplement to Ultrasound use and No twitch or parasthesia noted < 0.5 mA Paresthesia: None Post Procedure Pain score (0-10): 0 Procedure Tolerated: No Complications Procedure Outcome: Successful Procedure Comment: Patient tolerated block well, no complications, patient reported no pain or electrical sensation during block. Performed By: Shima Escalante
--- NOTE | 2024-03-28 12:05 | W.PM.OP ---
Date of service: 03/28/24 Time of Service: 10:30 Operative Note Operative Note DATE OF PROCEDURE: 03/28/24 PRE-OP DIAGNOSIS: Right Knee Osteoarthritis POST-OP DIAGNOSIS: same PROCEDURE: Right Total Knee Replacement SURGEON: Chinmay Munoz RETIREMENT ADMINISTRATOR: Ceci Dudley ANESTHESIA TYPE: Spinal Refer to Anesthesia Record ESTIMATED BLOOD LOSS: 150 PATHOLOGY: none sent TOURNIQUET TIME: 0 COMPLICATIONS: None Patient was transported to: PACU Patient's condition: stable Implants: 1. Depuy Attune Cementless Cruciate Retaining Femoral Component, Size 8 2. Depuy Attune Cementless Fixed Bearing Tibial Component, Size 7 3. Depuy Attune 8x6 CR/FB Poly 4. Depuy Attune Patellar Component, Size 38 Indications: I have seen Jhonatan in clinic for symptoms of knee arthritis, confirmed with radiographic findings. He has exhausted nonoperative methods and was having significant limitations in daily function and desired better function and less pain. I discussed the technical details of a knee replacement. I explained the risks of the procedure to include, but not limited to, bleeding, infection, pain, stiffness, fracture, damage to nerves and vessels, damage to muscles and tendons, loosening, need for repeat procedure, blood clot and cardiopulmonary demise. Despite these risks, Jhonatan elected to proceed. Findings: There was significant signs of arthritis throughout the knee. Procedure Description: Jhonatan was greeted in the preoperative holding area where the correct side was identified and marked. The consent was reviewed with the patient and signed. The history and physical was updated. All questions were answered. Preoperative medications were administered: Acetaminophen 1000mg, Celebrex 400mg, and Gabapentin 300mg. An adductor canal block was then administered by the anesthesia team in the PACU. Jhonatan was taken back to the operating room. A spinal anesthestic was then administered. The patient was placed into the supine position on the operating room table. A nonsterile tourniquet was placed high onto the leg but only used for cementing. Posts were placed for positioning during the procedure. All bony prominences were well padded. Prophylactic antibiotics in the form of Cefazolin were administered. 1g of Tranxemic Acid was given intravenously within 30 minutes of incision. The right leg was then prepped with Chloraprep and draped in a standard fashion with impervious stockinette. A second prep with Chloraprep was performed prior to application of Iodine impregnated skin protection. A timeout to confirm correct identity, side and site, procedure, allergies, anesthesia, and medical concerns was performed. With the knee in some flexion, a midline incision was made overlying the knee. Full thickness skin flaps were raised once the extensor mechanism was encountered. These were raised medially and laterally. Any bleeding was controlled with electrocautery. Once the extensor mechanism was fully exposed, a medial parapatellar arthrotomy was performed in a flexed position. All bleeding from the arthrotomy and the geniculate arteries was coagulated. A medial subperiosteal peel was performed with electrocautery to the midcoronal plane. The fat pad was removed while keeping the patellar tendon protected. The anterior distal femur synovium was removed for later visualization. The ACL and PCL were resected and the anterior horn of the lateral meniscus was transected. The knee was then flexed with the patella everted. Large osteophytes from the tibia were removed. Large osteophytes from the femur were removed. Using a step drill, and based on preoperative templating, the femoral canal was entered. This was done with a step drill without any difficulty. The intramedullary distal femoral cut guide was inserted, set to a 5 degree valgus cut and 9mm cut thickness. The distal femoral cut guide was then held in position and pinned. With the soft tissues protected, the distal cut was performed. This was passed over a few times to ensure a planar cut. I then turned attention to the tibia. The extramedullary guide was placed onto the leg. The distal aspect was slid medial to adjust for position of center of ankle and stay in line with shaft of the tibia. Approximately 3-5 degrees of posterior slope was kept in the proximal cutting guide. The center of the guide was aligned with the PCL. The stylus was used to assess cut thickness. The medial side, most involved side, was set for a 4mm cut. This was then held in position and pinned into place with 2 additional pins and a cross pin for stability. The medial and lateral collateral ligaments were protected and the cut was performed. With this completed, it was assessed and noted to be of appropriate dimensions. The guide was removed. A spacer block was inserted and the knee was brought into extension. The 6mm spacer block provided full extension, without hyperextension and with stability of both the medial and lateral collateral ligaments was assessed. The pins from the femur and the tibia were then removed. The distal femur was then sized. The anterior stylus was placed onto the lateral ridge of the anterior femur. This indicated a size 8 femur. The external rotation of the guide was adjusted to 3 degrees to match the epicondylar axis, perpendicular to Praveen?s line. The 4-in-1 cutting guide was the placed. The posterior medial femur cut was evaluated and appeared of good thickness. The spacer block was inserted underneath the cutting guide and stability was confirmed in 90 degrees of flexion. An jeff wing was used to confirm appropriate position of the anterior cut to avoid notching. This cutting guide was ensured to be flush on the cut surface and then pinned into place with headed pins. While protecting the soft tissues, quad tendon, and collateral ligaments, the anterior and posterior cuts were performed with a saw. The central two pins were removed and the posterior and anterior chamfers were cut next. The notch-cutting guide was placed. This was pinned to lateralize the femoral component as much as possible while keeping it flush on the cut surface. This was then pinned into position. A reciprocating saw was used to make the notch cut. A rasp smoothed the cut surfaces. The medial and lateral menisci were removed. A trial femoral component was then inserted, impacted down to the cut surfaces, and the lug holes were drilled. A provisional trial tibial component was placed and the knee was brought through range of motion. There was noted to be excellent extension and flexion. There was no significant instability. The patella was tracking without thumbs. A size 6mm polyethylene component provided the best range of motion and stability with less than 2mm gapping with medial and lateral stress and full extension without significant hyperextension. The tibial cut surface was fully exposed. The tibia was then sized as a 7. The tibia had been previously marked during trialing to correspond to the center of the tibial component to help with rotation. The trial was aligned to this ceci, approximately rotated to the medial 1/3rd of the tibial tubercle. The trial was pinned into place. The tibia was prepared with a reamer and a keel punch and lug holes. The knee was then brought into extension and the patella was measured as 32mm. Using the patellar clamp and cut guide, this was resected to a flat surface with at least 13mm of thickness remaining. The size 38 patella fit the best. This was oriented and then clamped into position. The lugs were drilled. The trial components were removed. The final components were opened on the back table. The periosteal and capsular tissues, especially posteriorly, around the knee were then systematically injected with a periarticular cocktail consisting of 246mg of Ropivacaine, 0.5mg of Epinephrine, 0.08mg of Clonidine, and 30mg of Ketorolac, diluted to 100cc. On the back table, with the implants opened, the cement was mixed. One batch of high viscosity cement was prepared with vacuum assistance. After the cement was ready a small amount was placed on the cut surface of the patella and the patellar button was clamped into position and held. While the cement was hardening, the cementless knee components were placed. Starting with the tibial component, the tibia was subluxed anteriorly and the lug holes of the component were lined up. The tibia was then impacted with an impactor and mallet until the tibial component was in contact with the tibia. The final polyethylene component was inserted. Then, the femoral component was inserted. The lug holes were aligned and the component was impacted into position. The knee was irrigated with Surgiphor Betadine solution. This was allowed to sit in the knee for 3 minutes and then it was irrigated out with saline. After the cement had finally cured, approximately 15min, the clamp was removed from the patella and the knee was taken through range of motion. The patella was tracking with a no-thumbs technique. The capsule was then reapproximated with a No. 1 Vicryl at multiple locations. The capsule was finally closed with a No. 2 Stratafix, barbed suture. The second dosing of 1g TXA was started. Deep tissues were then reapproximated with 0 Vicryl and 2-0 Vicryl. The skin was closed with a running 3-0 Monocryl in a subcuticular fashion. This was reinforced with skin glue. A Mepilex silver dressing was applied along with a [id number] ANNE wrap. A CryoCuff was applied. Jhonatan was transferred to the hospital bed without difficulty an suffering no apparent complication. Jhonatan has a good prognosis. Physical therapy will start today and without restrictions, weight-bearing as tolerated. Aspirin 81mg BID will be used for DVT prophylaxis.
[2024-03-28] MEDS: fentaNYL 100 MCG/2 ML VIAL IVP (12:32)
--- NOTE | 2024-03-28 13:29 | W.ANESPOSTOP ---
Postoperative Evaluation Date, Time and Location Date Performed: 03/28/24 Time Performed: 12:42 Patient Location: PACU Vital Signs Most Recent Imported Vital Signs: Most Recent Vital Signs Temp Pulse Resp BP Pulse Ox 36.5 C 71 16 158/80 H 95 03/28/24 13:22 03/28/24 13:22 03/28/24 13:22 03/28/24 13:22 03/28/24 13:22 Pain Score Most Recent Pain Score: Most Recent Pain Score Pain Level 5 03/28/24 13:22 Assessment Mental Status: Awake (Alert & Oriented to Patient Baseline) Airway and Respiratory Function: Patent airway with normal (patient baseline) respiratory exam Cardiovascular Function: Hemodynamically Stable Hydration Status: Adequately Hydrated Nausea & Vomiting: No Nausea or Vomiting Pain: Pain is tolerable per patient Peripheral Nerve Block: Patient did not receive a nerve block
[2024-03-28] MEDS: HYDROmorphone 2 MG TAB PO (13:32)
--- NOTE | 2024-03-28 13:40 | IN_ITS ---
PT Notes Visit Reasons: R TKR Physical Therapy Day Surgery Initial Evaluation Date: 03/28/2024 Referring Doctor: LUCIA Romero PT Orders: PT CONSULT: S/P Ortho Surgery Precautions: WBAT on the right LE with AD. Patient Profile/Admitting Diagnosis: Jhonatan is a 73-year-old male with degenerative joint disease of the right knee and status post right total knee arthroplasty on postoperative day 0. PMHX: Medical History Thoracic back pain BMI 40.0-44.9, adult Sleep apnea Onychomycosis Uncontrolled diabetes mellitus type 2 without complications Alcohol abuse Erectile dysfunction Urinary frequency Tubular adenoma of colon Skin lesions Decreased hearing of both ears Surgical History Hx of colonoscopy 07/13/19History of carpal tunnel release of both wrists H/O arthroscopic knee surgery H/O arthroscopic knee surgery Right kneeHistory of appendectomy Arthroplasty of knee (10/01/13) LEFT History of knee replacement procedure of left knee H/O surgical procedure a. right knee arthroscopy 09/2011 b. left knee arthroscopy 02/2013 - patellofemoral arthritis and DJD of medial femoral condyle and complex tear of his medial meniscus Social History/Home Situation: Lives with and private home with 4 steps to enter with rails on both sides. Independent with all aspects of ADLs prior to surgery although has had increasing inability to perform mobility ADL performance due to worsening arthritis. Equipment Owned/DME: [facility] Subjective: Denied headache, chest pain, and lightheadedness throughout session. Reported 2?3/10 pain in the right knee at rest and with movement. Objective: General Observation: Alistair wraps to right LE Cryo/Cuff to right knee. TKA scar on left knee well-healed. TEDS to left leg and foot. Diana present in room throughout session Mental Status: A&O x 4 Pain: As above ROM: Right Lower Extremity: Hip flexion WFL. Hip abduction WFL. Knee flexion 20 degrees to 90 degrees. Knee extension -20 degrees ankle dorsiflexion WFL. Ankle plantarflexion WFL. Left Lower Extremity: Hip flexion WFL. Hip abduction WFL. Knee flexion 10 degrees to 100 degrees. Knee extension -10 degrees. Ankle dorsiflexion WFL. Ankle plantarflexion WFL. Strength: Right Lower Extremity: Hip flexors 5/5. Hip abductors 5/5. Knee flexors 5/5. Knee extensors 5/5. Ankle dorsiflexors 5/5. Ankle plantarflexors 5/5. Left Lower Extremity:Hip flexors 5/5. Hip abductors 5/5. Knee flexors 5/5. Knee extensors 5/5. Ankle dorsiflexors 5/5. Ankle plantarflexors 5/5. Sensation: Intact as to pain and light pressure and bilateral lower extremities Bed Mobility/Transfers: Minimal cueing provided for use of B hands as needed for support, movement sequence, AD management, and posture to reduce fall risk and minimize pain report Supine to sit standby assist Sit to stand contact-guard assist with FWW Stand to sit standby assist with FWW Bed to chair standby assist with FWW Gait: Facilitated safe and correct performance of level surface ambulation covering a distance of 150 feet with step through reciprocal heel-toe gait pattern using front wheeled walker and standby assist only of the PET requiring minimal verbal cueing for limb movement sequence, AD management, and posture to minimize pain report and reduce fall risk. Stairs: Guided patient with safe and correct negotiation of 6 x 4 inch steps and 4 x 6 inch steps while holding onto bilateral rails with step to gait pattern requiring minimal verbal cueing for limb movement sequence, increased flexion on each knee during ascent, and posture to reduce fall risk and minimize pain report. Balance: Static Sitting: Normal Dynamic Sitting: Normal Static Standing: Fair Dynamic Standing: Fair Special Tests: Mobility Limitations Standardized Measure [facility] 6 clicks Basic Mobility Inpatient Short Form: Raw Score: 23 CMS Score: 11% deficit Informed Consent/Education: Patient instructed in purpose of PT consult. Packet containing TKA exercise protocol has been given to patient. Education and training on initial set of exercises that can be done at home have been completed with patient. Trained patient with correct performance of exercises below to maximize motor control, joint flexibility, soft tissue extensibility of the R knee musculature: Access Code: [email or web address] URL: [email or web address] Date: 03/28/2024 Prepared by: Jen Worthington Exercises - Supine Quad Set - 1 x daily - 7 x weekly - 1 sets - 10 reps - 5 hold - Supine Heel Slide - 1 x daily - 7 x weekly - 1 sets - 10 reps - 5 hold - Supine Ankle Pumps - 1 x daily - 7 x weekly - 1 sets - 10 reps - 5 hold - Small Range Straight Leg Raise - 1 x daily - 7 x weekly - 1 sets - 10 reps - 5 hold - Seated March - 1 x daily - 7 x weekly - 1 sets - 10 reps - 5 hold Assessment: Patient requires use of a front wheeled walker for all mobility ADL performance to maximize independence and reduce fall risk. Patient presents with clinical signs and symptoms consistent with current/admitting diagnoses that have resulted to mobility limitations, gait instability, generalized weakness, and impairment of motor control as demonstrated by the following impairment level findings: 1. Decreased strength to R/L knee major muscle groups 2. Impaired standing balance 3. Limitation of joint range of motion in R/L knee Impairments are contributing to the following functional limitations: 1. Inability to safely ambulate without assistive device 2. Increase completion time for mobility ADL performance 3. Increased fall risk Patient is assessed as a 38568 moderate complexity based on the following: History: 73-year-old male with impairment level findings, functional limitations, and past medical history as indicated above Examination: Demonstrable impairment in strength, balance, and mobility level with underlying impairments and functional limitations as documented above Presentation: Evolving Decision Makin moderate complexity Goals: N/A. PT evaluation and 1-2 treatment sessions only for functional mobility training using recommended AD and for HEP instruction. Plan of Care/Treatment Plan: N/A. PT evaluation and 1-2 treatment session only for functional mobility training using recommended AD and for HEP instruction. DISCHARGE RECOMMENDATIONS: Home when medically cleared by orthopedic surgeon. Recommend outpatient PT services in order to optimize functional mobility outcomes and facilitate return to independent community ambulation without an assistive device. TREATMENT CODE/TIME: 9716 2 x 20 minutes for 1 unit, 9753 0 x 9 minutes for 1 unit (13:40-14:09) Thank you for the opportunity to participate in the care of this patient. Please sign an return this page within 30 days if you agree with the above POC. Thank you! Physician Signature Date [facility] Thank you for the opportunity to participate in the care of this patient. Jen Worthington PT, DPT, CLT [facility] [place], [place]
== END 2024-03-28 14:38 | disposition home or self-care (01) ==
PROVIDERS: PCP Physician Assistant Medical; Visit Provider Student in an Organized Health Care Education/Training Program
PROC: (CPT 27447; principal; 2024-03-28 09:45)
DX: M17.11 Unilateral primary osteoarthritis, right knee (principal); E11.51 Type 2 diabetes mellitus with diabetic peripheral angiopathy without gangrene; Z79.4 Long term (current) use of insulin; I10 Essential (primary) hypertension; J45.909 Unspecified asthma, uncomplicated; E78.5 Hyperlipidemia, unspecified; G47.33 Obstructive sleep apnea (adult) (pediatric)
CPT/HCPCS: 27447; C1776; 76942; 97162; 97530; J0665; J0690; J2001; J2250; J2401; J2405; J2704; J3010

== ENCOUNTER 2024-04-12 11:23 | Outpatient (CLI) | payer OTHER, SELFPAY ==
--- NOTE | 2024-04-12 11:00 | DI.RAD_ITS ---
Exam(s) XR STANDING ALIGNMENT XR KNEE RT 1V EXAM: XR STANDING ALIGNMENT and XR knee RT 1 V CLINICAL HISTORY: 1ST POST OP R TKA. TECHNIQUE: 2D digital imaging was performed. Five images were obtained. COMPARISON: CR XR STANDING ALIGNMENT from 03/16/2024 FINDINGS: BONES: The hips are well maintained. The patient has bilateral total knee replacements. The orthope dic hardware appears in good position. The ankles are well maintained.There is no significant leg le ngth discrepancy. SOFT TISSUE: Normal. IMPRESSION: Stable bilateral total knee replacements. DATA REPOSITORY: RADIATION DOSE DELIVERED:
== END 2024-04-12 11:24 | disposition home or self-care (01) ==
LOC: DIORS 11:24
PROVIDERS: PCP Physician Assistant Medical; Referring Provider Physician Assistant Medical; Visit Provider Student in an Organized Health Care Education/Training Program
DX: Z96.651 Presence of right artificial knee joint (principal); Z47.1 Aftercare following joint replacement surgery
CPT/HCPCS: 73560; 77073

== ENCOUNTER → 2024-05-14 10:10 | Outpatient (BNVA) | payer OTHER, SELFPAY | PROVIDERS: PCP Physician Assistant Medical; Referring Provider Physician Assistant Medical | DX: Z47.1 Aftercare following joint replacement surgery (principal); Z96.651 Presence of right artificial knee joint ==

== ENCOUNTER 2024-05-29 08:40 | Outpatient (REF) | payer OTHER, SELFPAY ==
[2024-05-29 16:05] LABS: Hemoglobin A1C 6.4 % (<5.7)
[2024-05-29 16:07] LABS: ALT 22 U/L (16-63); AST 16 U/L (15-37); Alkaline Phosphatase 80 U/L (46-116); Anion Gap 10.5 mmol/L (3-11); BUN 17 mg/dL (7-18); Bilirubin, Total 0.49 mg/dL (0.2-1.0); CO2 27.5 mmol/L (21.0-32.0); Calcium 9.8 mg/dL (8.5-10.1); Calculated LDL 63 mg/dL (<100); Chloride 104 mmol/L (98-107); Cholesterol 127 mg/dL (<200); Estimated GFR 79.97 (mL/min/1.73m2); Glucose 147 mg/dL (74-106); HDL Cholesterol 45 mg/dL (40-60); Potassium 4.5 mmol/L (3.5-5.1); Sodium 142 mmol/L (136-145); Total Protein 7.1 g/dL (6.4-8.2); Triglyceride 96 mg/dL (<150)
== END 2024-05-29 08:41 | disposition home or self-care (01) ==
LOC: NCHCN 08:40
PROVIDERS: PCP Physician Assistant Medical; Visit Provider Physician Assistant Medical
DX: E11.9 Type 2 diabetes mellitus without complications (principal); E78.5 Hyperlipidemia, unspecified
CPT/HCPCS: 80053; 80061; 83036

== ENCOUNTER → 2024-07-24 07:52 | Outpatient (BNVA) | payer OTHER, SELFPAY | PROVIDERS: PCP Physician Assistant Medical; Referring Provider Physician Assistant Medical; Visit Provider Podiatrist | DX: E11.51 Type 2 diabetes mellitus with diabetic peripheral angiopathy without gangrene (principal); L60.3 Nail dystrophy; B35.1 Tinea unguium; B35.3 Tinea pedis; R09.89 Other specified symptoms and signs involving the circulatory and respiratory systems; L65.9 Nonscarring hair loss, unspecified; R23.8 Other skin changes; R20.2 Paresthesia of skin | CPT/HCPCS: 11721 ==

== ENCOUNTER → 2024-09-27 08:00 | Outpatient (BNVA) | payer OTHER, SELFPAY | PROVIDERS: PCP Physician Assistant Medical; Referring Provider Physician Assistant Medical; Visit Provider Physical Therapy Assistant | DX: Z12.11 Encounter for screening for malignant neoplasm of colon (principal); Z86.0100 Personal history of colon polyps, unspecified; E11.9 Type 2 diabetes mellitus without complications; I10 Essential (primary) hypertension ==

== ENCOUNTER 2024-10-12 07:33 | Day surgery (SDC) | payer OTHER, SELFPAY ==
--- NOTE | 2024-10-11 20:22 | W.PM.DSUDISC ---
Date of service: 10/12/24 Discharge Plan Disposition Patient Disposition: Home Condition: Good Discharge Details Reason For Visit: screening colonoscopy Attending Provider: Jhonatan Figueroa Primary Care Provider: Tomeka Nielson Home Meds and New Rx's Prescriptions: Continued dapagliflozin propanediol [Farxiga] 5 mg tablet 5 mg PO DAILY metformin 500 mg tablet 1,000 mg PO BID ammonium lactate 12 % lotion 1 applic TP BID sildenafil [Viagra] 50 mg tablet 50 mg PO DAILY PRN insulin glargine [Basaglar KwikPen U-100 Insulin] 100 unit/mL (3 mL) insulin pen 50 unit SC DAILY Ozempic 1 mg/dose (4 mg/3 mL) pen injector 1 mg subcut QWEEK dexamethasone 4 mg tablet 4 mg PO DAILY gabapentin 300 mg capsule 300 mg PO QHS ketoconazole 2 % cream 1 applic topical DAILY 90 Days Qty: 60 3RF aspirin 81 mg tablet,delayed release (DR/EC) 81 mg PO DAILY lisinopril 10 MG tablet 10 mg PO DAILY simvastatin 80 MG tablet 40 mg PO DAILY albuterol sulfate [Proventil HFA] 1 PUFF HFA aerosol inhaler 2 puff Inhalation QID PRN Patient Comments: 11/12/15 Pt states not used a month ago. PG celecoxib 200 mg capsule 200 mg PO BID Qty: 60 0RF acetaminophen 500 mg tablet 1,000 mg PO TID Qty: 90 3RF Discontinued bisacodyl [Dulcolax (bisacodyl)] 5 mg tablet,delayed release (DR/EC) 5 mg PO ONCE Qty: 4 0RF Rx Instructions: Take per colonoscopy instructions provided by ordering providers office polyethylene glycol 3350 17 gram/dose powder 17 g PO ONCE Qty: 238 0RF Rx Instructions: Take per colonoscopy instructions provided by ordering providers office Discharge Instructions Instructions: Colon polyps Additional Instructions: Jhonatan, is very nice meeting you today, and I hope you are comfortable during the procedure. I hope you make a quick recovery and have a great afternoon. I did find, and removed 2 polyps today. Both of these are extremely small, and certainly nothing to worry about. I will send them off for testing since polyps 2, different varieties, and that can influence the timing of your next colonoscopy. Those results will take about a week or 2 to get back, but once we have them, the office will be in touch with any other recommendations. If you have any questions at all, please do not hesitate to ask at any time. 1. If tolerated, consume a soft, low fiber diet for 1-2 days. 2[address] Do not drive, drink alcohol, operate machinery, make critical decisions, or do activities that require coordination or balance for 24 hours. 3. Because air was put into your colon during the procedure, expelling air from your rectum (passing gas or farting) is normal. 4. You may not have a bowel movement for 1-3 days because of the colonoscopy prep. This is normal. 5. Go directly to the emergency room if you notice any of the following: Develop chills (warm to touch), or if you have a thermometer and your temperature is above 101 Difficulty breathing or difficultly swallowing Persistent vomiting Severe abdominal pain, other than gas cramps Severe chest pain Black, tarry stools Any bleeding ? exceeding one tablespoon 6. Call your physician if the site where your intravenous was started becomes red, swollen, painful, and warm to touch. 7. Your physician has reviewed your pre-procedure medications. Please continue to take those medications as previously ordered. You will be given specific information/education regarding any changes to your medications before leaving. Activity:: Activity as Tolerated Diet:: As Tolerated Discharge Orders Discharge Orders: Discharge Order (Routine); Ordered 10/11/24 Ordered By: Jhonatan Figueroa DS: Diagnosis Discharge Diagnosis (1) Encounter for screening colonoscopy: Status: Acute Asessment and Plan: Follow-up on polypectomy results
--- NOTE | 2024-10-11 20:24 | COLE_ITS ---
Date of service: 10/12/24 Time of Service: 10:23 Colonoscopy Report Date of procedure: 10/12/24 Pre-op diagnosis general: screening colonoscopy Post-op diagnosis procedure note: other (Colon polyps) Procedure: colonoscopy with polypectomy Surgeon: Jhonatan Figueroa Anesthesia Type: General:No Airway Estimated blood loss (mL): 5 Pathology: other (0.25 cm polyp at 65 cm, 0.25 cm polyp at 50 cm) Complications: None Disposition: same day Indications: Jhonatan is a 73 year old man with a history of adenomatous polyps who needs his next screening colonscopy Prep: Miralax/Dulcolax Procedure Start Time: 09:57 Procedure End Time: 10:13 Retraction Time: 13 Findings: 0.25 cm polyp at 65 cm, 0.25 cm polyp at 50 cm Procedure Description: After the induction of anesthesia, and with the patient in left lateral decubitus position, I began by performing an external anorectal exam.? Perineum and skin were normal, as was the anal verge.? There was no evidence of external hemorrhoids.? Next, I performed a digital rectal exam.? I did not appreciate any abnormal findings.? Next, I advanced a colonoscope into the rectal vault.? I performed retroflexion.? This appeared normal.? Using insufflation, I then advanced the colonoscope beyond the rectal folds and into the sigmoid colon before advancing towards the cecum.?The scope was noted to be in the cecum by identification of the ileocecal valve and appendiceal orifice.? I then began withdrawing the colonoscope using repeated irrigation as necessary for full evaluation of the colonic mucosa. Around 65 cm from the anal verge was a 0.25 cm flat polyp. This was removed with cold forceps with minimal bleeding. I found another polyp at 50 cm. This was also about 0.25 cm and flat. I removed this with cold forceps as well. ?Once the scope was withdrawn to the level of the rectum, great care was taken to examine portions of the rectal folds.? Finally, the scope was withdrawn and the patient was brought to the same-day surgery recovery unit as the anesthetic wore off. ?The findings and instructions were shared with the patient prior to discharge. [place] Bowel Prep [place] Bowel Prep Right Colon: 3 Left Colon: 3 Transverse Colon: 3 Total Score: 9
[2024-10-12 08:02] VITALS: BP 135/71; PULSE 86; RESP 20; TEMP 36.4; O2SAT 97
[2024-10-12] MEDS: Normal Saline Flush 10 ML SYR IV (08:23)
[2024-10-12 09:03] VITALS: BMI 38.4
--- NOTE | 2024-10-12 09:03 | W.ANESPRE ---
General Info Date of Service Date Performed: 10/12/24 Height: 5 ft 8 in Weight: 114.6 kg Body Mass Index (BMI): 38.4 Surgical Procedure: Operation Date: 10/12/24 09:05 Proposed Procedure Side Surgeon von Figueroa MD Meds Allergies and Home Medications Allergies Allergy/AdvReac Type Severity Reaction Status Date / Time oxycodone AdvReac Severe Nausea Verified 10/12/24 07:58 Home Medication ?Medication ?Instructions ?Recorded albuterol sulfate 90 mcg/actuation 2 puff inhalation QID PRN 09/24/13 aerosol inhaler (Proventil HFA) simvastatin 80 mg tablet 40 mg PO DAILY 09/24/13 lisinopril 10 mg tablet 10 mg PO DAILY 01/28/15 ammonium lactate 12 % lotion 1 applic topical BID 05/08/19 metformin 500 mg tablet 1,000 mg PO BID 05/08/19 sildenafil 50 mg tablet (Viagra) 50 mg PO DAILY PRN 05/08/19 dapagliflozin propanediol 5 mg 5 mg PO DAILY 12/05/23 tablet (Farxiga) semaglutide 1 mg/dose (4 mg/3 mL) 1 mg subcut QWEEK 03/16/24 subcutaneous pen injector (Ozempic) acetaminophen 500 mg tablet 1,000 mg (2 x 500 mg) PO TID #90 03/28/24 tabs celecoxib 200 mg capsule 200 mg PO BID #60 caps 03/28/24 aspirin 81 mg tablet,delayed 81 mg PO DAILY 05/14/24 release dexamethasone 4 mg tablet 4 mg PO DAILY 07/23/24 gabapentin 300 mg capsule 300 mg PO QHS 07/23/24 ketoconazole 2 % topical cream 1 applic topical DAILY 3 months 07/24/24 #60 grams insulin glargine 100 unit/mL (3 50 unit subcut DAILY 09/27/24 mL) subcutaneous pen (Basaglar KwikPen U-100 Insulin) Current Visit Medications: Current Medications Generic Name Dose Route Start Last Admin Trade Name Freq PRN Reason Stop Dose Admin Ringer's Solution 1,000 mls @ 80 mls/hr 10/12/24 06:00 IV 10/12/24 23:59 INFUSION [facility] IV Miscellaneous Supplies 1 each 10/12/24 06:00 Iv Access IV 10/12/24 23:59 DIRECTED [facility] Ondansetron HCl 4 mg 10/11/24 20:25 Ondansetron 4 Mg/2 Ml Vial IVP 11/10/24 20:24 Q4H PRN PRN Nausea / Vomiting Sodium Chloride 0 ml 10/12/24 06:00 10/12/24 08:23 Normal Saline Flush 10 Ml Syr IV 10/12/24 23:59 10 ml PRN PRN Administration Sodium Chloride 0 ml 10/12/24 06:00 Normal Saline 10 Ml Vial IJ 10/12/24 23:59 DIRECTED PRN Sterile Water 0 ml 10/12/24 06:00 Water,Injection,Sterile 10 Ml Vial IJ 10/12/24 23:59 DIRECTED PRN PFSH Active Problems Active Problems: Problem Status Onset Code Encounter for screening colonoscopy Acute Z12.11 Tinea pedis Acute B35.3 Diabetes mellitus with peripheral angiopathy Acute E11.51 Nail dystrophy Acute L60.3 Right rotator cuff tendonitis Acute M75.81 Seborrheic keratosis Acute 07/14/16 L82.1 Sebaceous cyst Acute 07/14/16 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, soft tissue, and skin Acute 04/21/15 D49.2 Colon polyp Acute K63.5 Hypertension Chronic I10 RAD (reactive airway disease) Chronic J45.909 NATASHA (obstructive sleep apnea) Chronic G47.33 Hyperlipidemia Chronic E78.5 Diabetes mellitus, type II Chronic E11.9 Carpal tunnel syndrome Acute G56.00 Medical History Medical History Thoracic back pain BMI 40.0-44.9, adult Sleep apnea Onychomycosis Uncontrolled diabetes mellitus type 2 without complications Alcohol abuse Erectile dysfunction Urinary frequency Tubular adenoma of colon Skin lesions Decreased hearing of both ears Medical History Comments:: Pt. states he wakes up hard Surgical History Surgical History History of total right knee replacement (03/28/24) Hx of colonoscopy 07/13/19 History of carpal tunnel release of both wrists H/O arthroscopic knee surgery H/O arthroscopic knee surgery Right knee History of appendectomy Arthroplasty of knee (10/01/13) LEFT History of knee replacement procedure of left knee H/O surgical procedure a. right knee arthroscopy 09/2011 b. left knee arthroscopy 02/2013 - patellofemoral arthritis and DJD of medial femoral condyle and complex tear of his medial meniscus Tobacco Smoking/Tobacco Use Status: Never Alcohol Alcohol Intake: current Alcohol intake frequency: 0-2 drinks per day Alcohol type: hard liquor Substance Use Substance use: Never Substance use type: does not use Vital Signs and Lab Results Vital Signs Most Recent Vital Signs in EMR: Most Recent Vital Signs Temp Pulse Resp BP Pulse Ox 36.4 C L 86 20 135/71 97 10/12/24 08:02 10/12/24 08:02 10/12/24 08:02 10/12/24 08:02 10/12/24 08:02 Point of Care Results Point of Care Results: Finger Stick Blood Glucose 148 10/12/24 07:57 Lab Results Blood Type / Crossmatch: No Data to Display Complete Blood Count: No Data to Display Complete Metabolic Panel: No Data to Display Liver Function Panel: No Data to Display Coagulation Panel: No Data to Display Cardiac Panel: No Data to Display Arterial Blood Gas: No Data to Display Venous Blood Gas: No Data to Display Pancreas Panel: No Data to Display Thyroid Panel: No Data to Display Infectious Disease: No Data to Display Blood Cultures: No Data to Display Toxicology Panel: No Data to Display Anesthesia Assessment and Plan Anesthesia History Personal History: No History of Anesthesia Complications Family History: No Family History of Anesthesia Complications Exercise Tolerance Exercise Tolerance: Metabolic Equivalents>4 Pertinent Negatives Pertinent Negatives: No Symptoms of GERD Cardiac & Pulmonary Exam Cardiac Exam: Normal S1/S2 Heart Sounds Pulmonary Exam: Clear Bilateral Breath Sounds Implantable Cardiac Device Does patient have a Pacemaker or an ICD?: No Airway Exam Known Difficult Airway: No Mallampati Class: 2 Mouth Opening: Normal (> 3cm) Thyromental Distance: Greater than 3 cm Neck Range of Motion: Full ROM Neck Circumference: Thick Teeth Condition: Normal Dentition ASA Classification ASA Score: ASA 2 Emergency Case?: No NPO Status NPO Status: NPO Clears >2 hours, Solids >8 hours Anesthesia Plan Resuscitation Status: Full Code Anesthesia Technique: General Anesthesia Airway Planned: Natural Airway Monitors Used: Standard Monitors
--- NOTE | 2024-10-12 10:02 | BOWEL_PTH ---
PATIENT: Jhonatan Baldwin LOC: [facility] U#:[id number] AGE/SX: 73/M ROOM: RE10/12/[address]: Jhonatan Figueroa MD : 1950 BED: DIS: 10/12/2024 SPEC #: [id number] RECD: 10/12/24 13:10 STATUS: ANTONELLA RE #: [id number] JANNA: 10/12/24 10:[address]: Jhonatan Figueroa DEPT: Surgical Specimen RECD BY: Shania Waddell ENTERED: 10/12/24 13:12 SP TYPE: Bowel OTHR DR: Tomeka Nielson Tissues: 1 - BIOPSY BOWEL 2 - BIOPSY BOWEL Procedures: GROSS AND MICRO LEVEL 4 Comments: [id number]
[2024-10-12 10:20] VITALS: BP 127/66; PULSE 77; RESP 18; TEMP 36.6; O2SAT 95
[2024-10-12 10:40] VITALS: BP 132/75; PULSE 72; RESP 18; TEMP 36.5; O2SAT 95
--- NOTE | 2024-10-12 10:46 | W.ANESPOSTOP ---
Postoperative Evaluation Date, Time and Location Date Performed: 10/12/24 Time Performed: 10:38 Patient Location: Day Surgery Unit Vital Signs Most Recent Imported Vital Signs: Most Recent Vital Signs Temp Pulse Resp BP Pulse Ox 36.5 C 72 18 132/75 95 10/12/24 10:40 10/12/24 10:40 10/12/24 10:40 10/12/24 10:40 10/12/24 10:40 Pain Score Most Recent Pain Score: Most Recent Pain Score Pain Level 0 10/12/24 10:40 Assessment Mental Status: Awake (Alert & Oriented to Patient Baseline) Airway and Respiratory Function: Patent airway with normal (patient baseline) respiratory exam Cardiovascular Function: Hemodynamically Stable Hydration Status: Adequately Hydrated Nausea & Vomiting: No Nausea or Vomiting Pain: Pt. Denies Any Pain Peripheral Nerve Block: Patient did not receive a nerve block
== END 2024-10-12 10:53 | disposition home or self-care (01) ==
LOC: SUR 07:33
PROVIDERS: PCP Physician Assistant Medical; Visit Provider Surgery
PROC: 0DJD8ZZ Inspection of Lower Intestinal Tract, Via Natural or Artificial Opening Endoscopic (ICD-10-PCS; CPT 45378; principal; 2024-10-12 09:00)
DX: Z12.11 Encounter for screening for malignant neoplasm of colon (principal); E11.9 Type 2 diabetes mellitus without complications; I10 Essential (primary) hypertension; G47.33 Obstructive sleep apnea (adult) (pediatric); D12.5 Benign neoplasm of sigmoid colon; D12.4 Benign neoplasm of descending colon
CPT/HCPCS: 45380; 88305; J2704

== ENCOUNTER → 2024-11-28 08:20 | Outpatient (BNVA) | payer MEDICARE, SELFPAY | PROVIDERS: PCP Physician Assistant Medical; Referring Provider Physician Assistant Medical; Visit Provider Podiatrist | DX: E11.51 Type 2 diabetes mellitus with diabetic peripheral angiopathy without gangrene (principal); L60.3 Nail dystrophy; B35.1 Tinea unguium; B35.3 Tinea pedis; R09.89 Other specified symptoms and signs involving the circulatory and respiratory systems; L65.9 Nonscarring hair loss, unspecified; R20.8 Other disturbances of skin sensation; R23.8 Other skin changes; L60.8 Other nail disorders; L85.8 Other specified epidermal thickening; R20.2 Paresthesia of skin | CPT/HCPCS: 11056; 11721 ==

== ENCOUNTER → 2025-03-27 08:16 | Outpatient (BNVA) | payer MEDICARE, SELFPAY | PROVIDERS: PCP Physician Assistant Medical; Referring Provider Physician Assistant Medical; Visit Provider Podiatrist | DX: L60.3 Nail dystrophy (principal); B35.1 Tinea unguium; B35.3 Tinea pedis; E11.51 Type 2 diabetes mellitus with diabetic peripheral angiopathy without gangrene; R09.89 Other specified symptoms and signs involving the circulatory and respiratory systems; L65.9 Nonscarring hair loss, unspecified; R20.8 Other disturbances of skin sensation; R23.8 Other skin changes; L60.2 Onychogryphosis; L60.8 Other nail disorders; L85.8 Other specified epidermal thickening | CPT/HCPCS: 11056; 11721 ==

== ENCOUNTER 2025-06-10 16:28 | Outpatient (REF) | payer MEDICARE, SELFPAY ==
[2025-06-10 16:28] LABS: Hemoglobin A1C 6.6 % (<5.7)
[2025-06-10 17:13] LABS: ALT 40 U/L (16-63); AST 19 U/L (15-37); Albumin 4.2 g/dL (3.4-5.0); Alkaline Phosphatase 74 U/L (46-116); Anion Gap 6.4 mmol/L (3-11); BUN 17 mg/dL (7-18); Bilirubin, Total 0.8 mg/dL (0.2-1.0); CO2 31.6 mmol/L (21.0-32.0); Calcium 10.2 mg/dL (8.5-10.1); Calculated LDL 70 mg/dL (<100); Chloride 101 mmol/L (98-107); Cholesterol 130 mg/dL (<200); Estimated GFR 79.47 (mL/min/1.73m2); Glucose 178 mg/dL (74-106); HDL Cholesterol 47 mg/dL (>or=40); Potassium 5.1 mmol/L (3.5-5.1); Sodium 139 mmol/L (136-145); Total Protein 7.1 g/dL (6.4-8.2); Triglyceride 68 mg/dL (<150)
== END 2025-06-10 16:29 | disposition home or self-care (01) ==
LOC: NCHCN 16:28
PROVIDERS: PCP Physician Assistant Medical; Visit Provider Physician Assistant Medical
DX: E11.9 Type 2 diabetes mellitus without complications (principal); I10 Essential (primary) hypertension; E78.5 Hyperlipidemia, unspecified
CPT/HCPCS: 80053; 80061; 83036

== ENCOUNTER → 2025-07-30 07:55 | Outpatient (BNVA) | payer MEDICARE, SELFPAY | PROVIDERS: PCP Physician Assistant Medical; Referring Provider Physician Assistant Medical; Visit Provider Podiatrist | DX: E11.51 Type 2 diabetes mellitus with diabetic peripheral angiopathy without gangrene (principal); L60.3 Nail dystrophy; B35.1 Tinea unguium; B35.3 Tinea pedis; R09.89 Other specified symptoms and signs involving the circulatory and respiratory systems; L65.9 Nonscarring hair loss, unspecified; R20.8 Other disturbances of skin sensation; R23.4 Changes in skin texture; L60.8 Other nail disorders; L60.2 Onychogryphosis; L85.8 Other specified epidermal thickening | CPT/HCPCS: 11721 ==